=== PATIENT | female | born 1945 | race Caucasian/White ===

== ENCOUNTER 2023-10-07 14:44 | Observation (INO) | payer MEDICARE ==
--- NOTE | 2023-10-07 17:11 | ED ---
Abdominal Pain HPI - General Chief Complaint: Abdominal Pain Stated Complaint: Weakness Time Seen by Provider: 10/07/23 16:15 Source: patient Mode of arrival: EMS Limitations: physical limitation - History of Present Illness Initial Comments: 77-year-old female with past medical history significant for blindness presenting to the ED with a chief complaint nausea, vomiting, diarrhea. Patient states for the past 2 to 3 weeks has had some nausea, vomiting, diarrhea. Reports 2-3 episodes of diarrhea on a usual basis. Also notes some associated abdominal pain with this as well which is diffuse in nature. Since onset, patient reports symptoms have worsened in severity and also notes over the last week has developed some pain with urination. Denies any chest pain or shortness of breath. Denies fever or chills. Unsure of any blood in her urine or diarrhea secondary to the blindness. Denies URI symptoms. No other complaints at this time. - Related Data Allergies Allergy/AdvReac Type Severity Reaction Status Date / Time amlodipine Allergy Swelling Verified 10/07/23 15:03 morphine [From MS Contin] Allergy Hallucinati Verified 10/07/23 15:03 ons venlafaxine [From Effexor] Allergy Rash/Hives Verified 10/07/23 15:03 Review of Systems ROS Statement: Those systems with pertinent positive or pertinent negative responses have been documented in the HPI. ROS Other: All systems not noted in ROS Statement are negative. Past Medical History Past Medical History: Blood Disorder, Hyperlipidemia, Hypertension, Myocardial Infarction ([place]) Additional Past Medical History / Comment(s): blind, anemia Past Surgical History: Appendectomy, Back Surgery, Heart Catheterization, Hysterectomy, Joint Replacement, Orthopedic Surgery Additional Past Surgical History / Comment(s): cystoscopy 08/2023 Past Psychological History: No Psychological Hx Reported Smoking Status: Former smoker Past Alcohol Use History: None Reported Past Drug Use History: None Reported General Exam Limitations: physical limitation General appearance: alert, in no apparent distress Eye exam: Present: other (Right eye missing.) Neck exam: Present: normal inspection Respiratory exam: Present: normal lung sounds bilaterally Cardiovascular Exam: Present: regular rate GI/Abdominal exam: Present: soft (Diffuse abdominal tenderness to palpation wo rse in the lower abdomen. No rebound guarding or rigidity. Bowel sounds present.) Back exam: Present: other (No midline spinal tenderness to palpation.) Neurological exam: Present: alert, oriented X3 Skin exam: Present: warm, dry Course Vital Signs 10/07/23 10/07/23 14:50 18:30 Temperature 98.7 F 98.4 F Pulse Rate 62 82 Respiratory 20 16 Rate Blood Pressure 149/97 136/100 O2 Sat by Pulse 98 98 Oximetry Medical Decision Making - Medical Decision Making Was pt. sent in by a medical professional or institution (, PA, CLOTHES MARKER, urgent care, hospital, or care home...) When possible be specific @ -No Did you speak to anyone other than the patient for history (EMS, parent, family, police, friend...)? What history was obtained from this source @ -No Did you review nursing and triage notes (agree or disagree)? Why? @ -I reviewed and agree with nursing and triage notes Were old charts reviewed (outside hosp., previous admission, EMS record, old EKG, old radiological studies, urgent care reports/EKG's, care home records)? Report findings @ -No old charts were reviewed Differential Diagnosis (chest pain, altered mental status, abdominal pain women, abdominal pain men, vaginal bleeding, weakness, fever, dyspnea, syncope, headache, dizziness, GI bleed, back pain, seizure, CVA, palpatations, mental health, musculoskeletal)? @ -Differential Abdominal Pain Women: Appendicitis, Cholecystitis, diverticulosis, ischemic bowel, pancreatitis, hepatitis, UTI, gastroenteritis, AAA, incarcerated hernia, bowel obstruction, constipation, inflammatory bowel, hepatitis, peptic ulcer disease, splenic infarction, perforated viscus, vulvitis, ovarian torsion, PID, kidney stone, pl acenta abruption, this is not meant to be an all-inclusive list EKG interpreted by me (3pts min.). @ -None X-rays interpreted by me (1pt min.). @ -None done CT interpreted by me (1pt min.). @ -CT abdomen pelvis did let me which showed nonspecific findings potentially representing a mild enterocolitis. Also some evidence of distention of the urinary bladder and/or/cystitis. U/S interpreted by me (1pt. min.). @ -None done What testing was considered but not performed or refused? (CT, X-rays, U/S, labs)? Why? @ -None What meds were considered but not given or refused? Why? @ -None Did you discuss the management of the patient with other professionals (professionals i.e. , PA, CLOTHES MARKER, lab, RT, psych nurse, social work nurse, peoplesoft, teacher, us customs and border officer, casework manager)? Give summary @ -Case discussed with Dr. Gomez, who accepts admission Was smoking cessation discussed for >3mins.? @ -No Was critical care preformed (if so, how long)? @ -No Were there social determinants of health that impacted care today? How? (Homelessness, low income, unemployed, alcoholism, drug addiction, transportation, low edu. Level, literacy, decrease access to med. care, fci, rehab)? @ -No Was there de-escalation of care discussed even if they declined (Discuss DNR or withdrawal of care, Hospice)? DNR status @ -No What co-morbidities impacted this encounter? (DM, HTN, Smoking, COPD, CAD, Cancer, CVA, ARF, Chemo, Hep., AIDS, mental health diagnosis, sleep apnea, morbid obesity)? @ -None Was patient admitted / discharged? Hospital course, mention meds given and route, prescriptions, significant lab abnormalities, going to OR and other pertinent info. @ -Admission 77-year-old female who is blind presenting to the ED with complaints of nausea, vomiting, diarrhea, abdominal pain for the last 2 to 3 weeks. Has had 2-3 episodes of diarrhea on a daily basis. Reports symptoms have not been improving thus prompting to the ED for further evaluation. Laboratory studies reviewed. CBC largely unremarkable. Chemistry panel is significant for an elevated BUN and creatinine at 59 and 1.60 respectively. Otherwise largely unremarkable. Serology panel unremarkable. CT abdomen pelvis does show nonspecific findings p otentially representing a mild enterocolitis. There is also some evidence of cystitis however UA is currently pending and patient states that she may be able to pee within the next 2 to 3 hours. Laboratory evidence of acute kidney injury therefore patient will be admitted to observation for gentle IV hydration. Antibiotics pending urinalysis. Undiagnosed new problem with uncertain prognosis? @ -No Drug Therapy requiring intensive monitoring for toxicity (Heparin, Nitro, Insulin, Cardizem)? @ -No Were any procedures done? @ -No Diagnosis/symptom? @ -Acute kidney injury Acute, or Chronic, or Acute on Chronic? @ -Acute Uncomplicated (without systemic symptoms) or Complicated (systemic symptoms)? @ -Uncomplicated Side effects of treatment? @ -No Exacerbation, Progression, or Severe Exacerbation? @ -No Poses a threat to life or bodily function? How? (Chest pain, [place], [place], pneumonia, PE, COPD, DKA, ARF, appy, cholecystitis, CVA, Diverticulitis, Homicidal, Suicidal, threat to staff... and all critical care pts) @ -No - Lab Data Result diagrams: 10/07/23 17:14 10/07/23 17:14 Lab Results 10/07/23 10/07/23 10/07/23 Range/Units 17:14 17:14 17:14 WBC 8.9 (3.8-10.6) k/uL RBC 4.09 (3.80-5.40) m/uL Hgb 11.8 (11.4-16.0) gm/dL Hct 37.3 (34.0-46.0) % MCV 91.2 (80.0-100.0) fL MCH 28.9 (25.0-35.0) pg MCHC 31.7 (31.0-37.0) g/dL RDW 14.4 (11.5-15.5) % Plt Count 338 (150-450) k/uL MPV 8.0 Neutrophils % 72 % Lymphocytes % 15 % Monocytes % 8 % Eosinophils % 3 % Basophils % 0 % Neutrophils # 6.4 (1.3-7.7) k/uL Lymphocytes # 1.3 (1.0-4.8) k/uL Monocytes # 0.8 (0-1.0) k/uL Eosinophils # 0.3 (0-0.7) k/uL Basophils # 0.0 (0-0.2) k/uL Sodium 140 (137-145) mmol/L Potassium 4.3 (3.5-5.1) mmol/L Chloride 110 H (98-107) mmol/L Carbon Dioxide 15 L (22-30) mmol/L Anion Gap 15 mmol/L BUN 59 H (7-17) mg/dL Creatinine 1.60 H (0.52-1.04) mg/dL Est GFR (CKD-EPI)AfAm 35 (>60 ml/min/1.73 sqM) Est GFR (CKD-EPI)NonAf 31 (>60 ml/min/1.73 sqM) Glucose 111 H (74-99) mg/dL Plasma Lactic Acid Acosta 1.1 (0.7-2.0) mmol/L Calcium 10.9 H (8.4-10.2) mg/dL Total Bilirubin 0.5 (0.2-1.3) mg/dL AST 39 H (14-36) U/L ALT 17 (4-34) U/L Alkaline Phosphatase 70 (38-126) U/L Total Protein 7.2 (6.3-8.2) g/dL Albumin 4.4 (3.5-5.0) g/dL Amylase 76 (30-110) U/L Lipase 219 (23-300) U/L Influenza Type A (PCR) (Not Detectd) Influenza Type B (PCR) (Not Detectd) RSV (PCR) (Not Detectd) SARS-CoV-2 (PCR) (Not Detectd) 10/07/23 Range/Units 17:14 WBC (3.8-10.6) k/uL RBC (3.80-5.40) m/uL Hgb (11.4-16.0) gm/dL Hct (34.0-46.0) % MCV (80.0-100.0) fL MCH (25.0-35.0) pg MCHC (31.0-37.0) g/dL RDW (11.5-15.5) % Plt Count (150-450) k/uL MPV Neutrophils % % Lymphocytes % % Monocytes % % Eosinophils % % Basophils % % Neutrophils # (1.3-7.7) k/uL Lymphocytes # (1.0-4.8) k/uL Monocytes # (0-1.0) k/uL Eosinophils # (0-0.7) k/uL Basophils # (0-0.2) k/uL Sodium (137-145) mmol/L Potassium (3.5-5.1) mmol/L Chloride (98-107) mmol/L Carbon Dioxide (22-30) mmol/L Anion Gap mmol/L BUN (7-17) mg/dL Creatinine (0.52-1.04) mg/dL Est GFR (CKD-EPI)AfAm (>60 ml/min/1.73 sqM) Est GFR (CKD-EPI)NonAf (>60 ml/min/1.73 sqM) Glucose (74-99) mg/dL Plasma Lactic Acid Acosta (0.7-2.0) mmol/L Calcium (8.4-10.2) mg/dL Total Bilirubin (0.2-1.3) mg/dL AST (14-36) U/L ALT (4-34) U/L Alkaline Phosphatase (38-126) U/L Total Protein (6.3-8.2) g/dL Albumin (3.5-5.0) g/dL Amylase (30-110) U/L Lipase (23-300) U/L Influenza Type A (PCR) Not Detected (Not Detectd) Influenza Type B (PCR) Not Detected (Not Detectd) RSV (PCR) Not Detected (Not Detectd) SARS-CoV-2 (PCR) Not Detected (Not Detectd) Disposition Clinical Impression: [place] (acute kidney injury) Disposition: ADMITTED IP TO THIS [facility] Condition: Good Referrals: None,Stated [REFERRING] - 1-2 days Time of Disposition: 21:30
[2023-10-07] MEDS: HYDROmorphone 0.5 MG/0.5 ML SYRINGE IVP STA (17:23)
[2023-10-07] MEDS: SODIUM CHLORIDE 0.9% 1,000 ML IV STA ×2 (17:27→20:22)
[2023-10-07 17:42] LABS: Basophils % (A) 0 %; Eosinophils # (A) 0.3 k/uL (0-0.7); Eosinophils % (A) 3 %; HCT 37.3 % (34.0-46.0); HGB 11.8 gm/dL (11.4-16.0); Lymphocytes # (A) 1.3 k/uL (1.0-4.8); Lymphocytes % (A) 15 %; MCH 28.9 pg (25.0-35.0); MCHC 31.7 g/dL (31.0-37.0); MCV 91.2 fL (80.0-100.0); Monocytes # (A) 0.8 k/uL (0-1.0); Monocytes % (A) 8 %; Neutrophils # (A) 6.4 k/uL (1.3-7.7); Neutrophils % (A) 72 %; Platelet Count 338 k/uL (150-450); RBC 4.09 m/uL (3.80-5.40); RDW 14.4 % (11.5-15.5); WBC 8.9 k/uL (3.8-10.6)
[2023-10-07 18:00] LABS: ALT 17 U/L (4-34); AST 39 U/L (14-36); African American GFR (CKD) 35 (>60 ml/min/1.73 sqM); Albumin 4.4 g/dL (3.5-5.0); Alkaline Phosphatase 70 U/L (38-126); Amylase 76 U/L (30-110); Anion Gap 15 mmol/L; Blood Urea Nitrogen 59 mg/dL (7-17); Calcium 10.9 mg/dL (8.4-10.2); Carbon Dioxide 15 mmol/L (22-30); Chloride 110 mmol/L (98-107); Glucose 111 mg/dL (74-99); Lipase 219 U/L (23-300); Non-African American GFR(CKD) 31 (>60 ml/min/1.73 sqM); Potassium 4.3 mmol/L (3.5-5.1); Sodium 140 mmol/L (137-145); Total Bilirubin 0.5 mg/dL (0.2-1.3); Total Protein 7.2 g/dL (6.3-8.2)
--- NOTE | 2023-10-07 19:05 | CT ---
EXAMINATION TYPE: CT abdomen pelvis wo con CT DLP: 254.6 mGycm, Automated exposure control for dose reduction was used. DATE OF EXAM: 10/07/2023 6:18 PM COMPARISON: None. CLINICAL INDICATION:Female, 77 years old with history of diffuse abdominal pain, n/v/d; diffuse abdom inal pain, n/v/d - poor kidney function TECHNIQUE: Axial CT of the abdomen and pelvis. Sagittal and coronal reformats were created on a [employer] workstation. Contrast used: mL of , (none if empty) Oral contrast used: without Oral Contrast (none if empty) FINDINGS: Exam is limited without contrast. This limitation by lack of intra-abdominal fat to provide intrinsic contrast. LOWER CHEST: Mild pleural thickening, SVC and scarring in the left lung base. Heart appears mildly en larged. The visualized tricuspid calcification and coronary artery calcifications. Small pericardial effusion. ABDOMEN LIVER/BILIARY: Right hepatic lobe appears mildly elongated up to 17.5 cm in length, with waist identi fied at its midportion along the inferior margin of the ribs. Gallbladder is seen somewhat unusually extending from the level of the terell hepatis inferiorly and towards the left, located just left of m idline inside the anterior abdominal wall. Biliary tree difficult to visualize but appears prominent. The CBD may be about 12 mm or so and not well seen distally. PANCREAS: Difficult to evaluate. No clearly acute abnormality. SPLEEN: Normal in size. ADRENAL GLANDS: No suggestion of mass. KIDNEYS AND URETERS: No evidence of renal calculi or contour deformity. No hydronephrosis. PELVIS BLADDER: Incompletely distended with mild diffuse thickened appearance to the wall. There may be smal l diverticula posterolaterally. REPRODUCTIVE: The uterus appears absent, correlate for hysterectomy. ABDOMEN & PELVIS STOMACH AND BOWEL: Stomach and small bowel are nondistended, no evidence of obstruction. The append ix is not seen with certainty but there is no inflammatory process seen in the pericecal region. Mod erate stool throughout the colon, hyperdense and some areas possibly representing residual contrast. PERITONEUM/RETROPERITONEUM: There is questionably some haziness of the mesenteric fat and some scat tered fluid in amongst bowel loops. No large drainable amount of ascites or focal fluid collection is identified. Gas seen appears to all be contained within bowel, without clear evidence of free intrap eritoneal air or pneumatosis intestinalis. VASCULATURE: Moderate to severe atherosclerotic calcifications are present throughout the abdominal a jacquie and its branches. No evidence of aortic aneurysm. Aorta is tortuous. LYMPH NODES: No enlarged lymph nodes visualized. SOFT TISSUE/ABDOMINAL WALL: No discrete acute finding MUSCULOSKELETAL: Generalized decreased bone mineralization. Moderate degenerative changes of the spin e with moderate to marked levoscoliosis of the upper lumbar spine. There is 5 mm degenerative anterol isthesis L3 on L4. Mild superior endplate depression of L5, inferior endplate depression of L2, super ior and inferior endplate depressions of L1, and mild superior endplate depression of T12, are favore d to be chronic without acute fracture lucency seen. Mild to moderate canal and foraminal stenosis at multiple levels. There is a small sclerotic focus in the left iliac bone near the upper end of the S I joints, nonspecific could be a bone island. A destructive osseous lesion is not identified. IMPRESSION: 1. Limited unenhanced study shows no clearly defined acute inflammatory or obstructive process in th e abdomen or pelvis. 2. Nonspecific findings could potentially represent a mild enterocolitis. No evidence of bowel obstr uction. 3. Biliary tree difficult to visualize but appears likely prominent. Please correlate with LFTs 4. Urinary bladder incompletely distended with mild diffusely thickened appearance, could be due to incomplete distention and/or cystitis. 5. Mild cardiomegaly with small pericardial effusion.
[2023-10-07] MEDS ORDERED: HYDROmorphone 1 MG/ML 1 ML SYRINGE IVP PRN (22:37)
[2023-10-07] MEDS ORDERED: NALOXONE 0.4 MG/ML 1 ML VIAL IV PRN (22:37)
[2023-10-07 23:15] LABS: Amorphous Sediment,Urine Rare /hpf; Appearance,Urine Clear (Clear); Bilirubin,Urine Negative (Negative); Blood,Urine Negative (Negative); Color,Urine Colorless; Glucose,Urine (UA) Negative (Negative); Hyaline Casts,Urine 4 /lpf (0-2); Ketones,Urine Trace (Negative); Leukocyte Esterase,Urine Small (Negative); Mucus,Urine Rare /hpf; Nitrite,Urine Negative (Negative); PH, Urine 5.5 (5.0-8.0); Protein,Urine Trace (Negative); RBC,Urine 1 /hpf (0-5); Specific Gravity,Urine 1.022 (1.001-1.035); Squamous Epithelial Cell,Urine <1 /hpf (0-4); Urobilinogen,Urine <2.0 mg/dL (<2.0); WBC,Urine 11 /hpf (0-5)
--- NOTE | 2023-10-08 01:09 | P.HPIM ---
History of Present Illness H&P Date: 10/08/23 Patient is a 77-year-old female resident of [facility] with a PMH of blindness, hypertension, hyperlipidemia, and coronary artery disease who presents to the emergency room with complaints of nausea, vomiting, and diarrhea. Patient notes that the above symptoms have been persistent for the past 2 weeks with intermittent diffuse abdominal discomfort, rated at a 7 out of 10, occurring multiple times a day lasting for few minutes at a time and then resolving spontaneously. Reports 2-3 watery bowel movements a day as well as 1- 2 episodes of vomiting, with no precipitating factors noted. Patient does not know if she has black or bloody stools due to her blindness. She denied experiencing fever, chills, chest pain, shortness of breath. CT abdomen and pelvis in the emergency room revealed nonspecific findings potentially representing a mild enterocolitis with mild cardiomegaly and small pericardial effusion. Laboratory evaluation was remarkable for BUN 59, creatinine 1.6 (no baseline available for comparison), with hemoglobin 11.8, with an unremarkable UA. ED documentation reviewed and case discussed with ED provider. Review of systems: Pertinent positives and negatives as discussed in HPI, a complete review of systems was performed and all other systems are negative. Physical examination: Vital signs reviewed General: non toxic, no distress, appears at stated age, thin female Derm: no unusual rashes/lesions, warm Head: atraumatic, normocephalic, symmetric Eyes: Right prosthetic eye, left pupil unreactive to light ENT: Nose and ears atraumatic Neck: No cervical lymphadenopathy, trachea midline, supple Mouth: no lip lesion, mucus membranes moist Cardiovascular: S1S2 reg, no murmur, positive dorsalis pedis pulse bilateral, no edema Lungs: CTA bilateral, no rhonchi, no rales, no accessory muscle use Abdominal: soft, nontender to palpation, no guarding Ext: muscle strength 5 out of 5 in all 4 extremities grossly, no gross muscle atrophy, no contractures, Neuro: CN II-XI grossly intact, no gross focal neuro deficits Psych: Alert, oriented, appropriate affect Assessment: Kidney injury, acute versus chronic Severe protein calorie malnutrition, likely due to persistent diarrhea and vomiting Chronic conditions: Hypertension, hyperlipidemia, CAD, blindness Imaging: CT abdomen and pelvis in the emergency room revealed nonspecific findings potentially representing a mild enterocolitis with mild cardiomegaly and small pericardial effusion. Data Review: Laboratory evaluation was remarkable for BUN 59, creatinine 1.6 (no baseline available for comparison), with hemoglobin 11.8, with an unremarkable UA. Plan: Continue with IV fluids normal saline 75 cc/h Start patient on Flagl 500 mg po q8h Dietitian consult Antiemetics Check calprotectin levels Monitor BMP Continue with home medications once reconciled DVT prophylaxis: Lovenox Subq The patient is admitted with an anticipated less than 2 midnight stay for evaluation of Kidney injury CODE STATUS: Full Code Discussed with: Patient Anticipated discharge place: Home Past Medical History Past Medical History: Blood Disorder, Hyperlipidemia, Hypertension, Myocardial Infarction ([place]) Additional Past Medical History / Comment(s): blind, anemia Past Surgical History: Appendectomy, Back Surgery, Heart Catheterization, Hysterectomy, Joint Replacement, Orthopedic Surgery Additional Past Surgical History / Comment(s): cystoscopy 08/2023 Past Psychological History: No Psychological Hx Reported Smoking Status: Former smoker Past Alcohol Use History: None Reported Past Drug Use History: None Reported Medications and Allergies Allergies Allergy/AdvReac Type Severity Reaction Status Date / Time amlodipine Allergy Swelling Verified 10/07/23 15:03 morphine [From MS Contin] Allergy Hallucinati Verified 10/07/23 15:03 ons venlafaxine [From Effexor] Allergy Rash/Hives Verified 10/07/23 15:03 Physical Exam Vitals: Vital Signs Temp Pulse Resp BP Pulse Ox 10/07/23 22:00 74 18 128/78 98 10/07/23 18:30 98.4 F 82 16 136/100 98 10/07/23 14:50 98.7 F 62 20 149/97 98 Intake and Output 10/07/23 10/07/23 10/08/23 14:59 22:59 06:59 Other: Weight 40.37 kg Results CBC & Chem 7: 10/07/23 17:14 10/07/23 17:14 Labs: Abnormal Lab Results - Last 24 Hours (Table) 10/07/23 10/07/23 Range/Units 17:14 22:55 Chloride 110 H (98-107) mmol/L Carbon Dioxide 15 L (22-30) mmol/L BUN 59 H (7-17) mg/dL Creatinine 1.60 H (0.52-1.04) mg/dL Glucose 111 H (74-99) mg/dL Calcium 10.9 H (8.4-10.2) mg/dL AST 39 H (14-36) U/L Urine Protein Trace H (Negative) Urine Ketones Trace H (Negative) Ur Leukocyte Esterase Small H (Negative) Urine WBC 11 H (0-5) /hpf Amorphous Sediment Rare H (None) /hpf Hyaline Casts 4 H (0-2) /lpf Urine Mucus Rare H (None) /hpf
[2023-10-08] MEDS: metroNIDAZOLE 500 MG TAB PO SCH (01:59)
[2023-10-08] MEDS: SODIUM CHLORIDE 0.9% 1,000 ML IV SCH (01:59)
[2023-10-08] MEDS: HYDROmorphone 0.5 MG/0.5 ML SYRINGE IVP PRN (02:32)
[2023-10-08 08:40] LABS: African American GFR (CKD) 63 (>60 ml/min/1.73 sqM); Anion Gap 10 mmol/L; Blood Urea Nitrogen 43 mg/dL (7-17); Calcium 9.9 mg/dL (8.4-10.2); Carbon Dioxide 18 mmol/L (22-30); Chloride 113 mmol/L (98-107); Glucose 93 mg/dL (74-99); Non-African American GFR(CKD) 55 (>60 ml/min/1.73 sqM); Sodium 141 mmol/L (137-145)
[2023-10-08 08:42] LABS: ALT 19 U/L (4-34); AST 40 U/L (14-36); African American GFR (CKD) 62 (>60 ml/min/1.73 sqM); Albumin 3.8 g/dL (3.5-5.0); Alkaline Phosphatase 59 U/L (38-126); Anion Gap 10 mmol/L; Blood Urea Nitrogen 42 mg/dL (7-17); Calcium 9.9 mg/dL (8.4-10.2); Carbon Dioxide 17 mmol/L (22-30); Chloride 114 mmol/L (98-107); Glucose 92 mg/dL (74-99); Non-African American GFR(CKD) 54 (>60 ml/min/1.73 sqM); Potassium 4.1 mmol/L (3.5-5.1); Sodium 141 mmol/L (137-145); Total Bilirubin 0.5 mg/dL (0.2-1.3); Total Protein 6.5 g/dL (6.3-8.2)
[2023-10-08 08:51] LABS: Potassium 4.3 mmol/L (3.5-5.1)
[2023-10-08] MEDS: ENOXAPARIN 30 MG/0.3 ML SYRINGE SQ SCH (09:04)
[2023-10-08] MEDS: ONDANSETRON 4 MG/2 ML VIAL IVP PRN (10:58)
[2023-10-08] MEDS: FAMOTIDINE 20 MG TAB PO SCH (14:09)
[2023-10-08] MEDS: LABETALOL 100 MG TAB PO SCH (14:10)
[2023-10-08] MEDS: LACTOBACILLUS ACIDOPHILUS/PECT 1 EACH CAPSULE PO SCH (14:12)
--- NOTE | 2023-10-08 14:46 | P.PN ---
Subjective Progress Note Date: 10/08/23 Hospital course: Patient is a very pleasant 77-year-old female with a past medical history of CAD, hypertension, hyperlipidemia, and blindness. She resides at [facility] and was sent to the emergency department on 10/07/2023 secondary to concerns of nausea, vomiting, and diarrhea with diffuse intermittent abdominal discomfort ongoing for approximately 2 to 3 weeks. She underwent evaluation in the emergency department. Vital signs upon arrival show blood pressure 149/97, heart rate 62, respiratory rate 20, temp 98.7 F, and SpO2 of 98% on room air. Labs were completed and reviewed. CBC was unremarkable. BMP revealing high anion gap metabolic acidosis with chloride of 110, bicarb 15, and anion gap of 15 along with acute kidney injury with BUN of 59, creatinine 1.60, GFR of 31. Blood glucose was 111. Lactic acid normal findings at 1.1. Calcium was elevat ed at 10.9. Liver profile revealed elevated AST of 39 otherwise normal findings. Urinalysis was not concerning for infection showing only 11 WBCs otherwise normal findings. Influenza A, influenza B, RSV, and COVID PCR were negative. CT abdomen and pelvis without contrast was completed was negative for acute inflammatory or obstructive process within the abdomen or pelvis with only nonspecific findings possibly representing a mild enterocolitis along with mild cardiomegaly and small pericardial effusion. Patient was started on Flagyl and admitted under our services with consultation to dietitian for nutritional support. C. difficile, stool culture, and calprotectin stool cultures pending. Physical exam: Vital signs reviewed and stable. General: Nontoxic, no distress and appears stated age. Derm: Skin warm and dry, normal coloration for ethnicity. Head: Atraumatic, normocephalic and symmetric. Eyes: EOMs intact, no lid lag, and anicteric sclera Mouth: no lip lesions, mucus membranes moist Cardiovascular: regular rate and rhythm with normal S1S2, no murmur, positive posterior tibial pulses bilaterally, and cap refill < 2 seconds. Lungs: Respirations even, regular, and unlabored on room air. Lungs CTA bilaterally, no rhonchi, no rales, no wheezing, and no accessory muscle usage. Abdominal: soft, nontender to palpation, no guarding, no appreciable organomegaly Ext: ROM intact. No gross muscle atrophy, no edema, no contractures Neuro: Speech clear, face symmetrical and CN II-XII grossly intact with no noted focal neuro deficits Psych: Alert and oriented to person, place, time, and situation. Appropriate and pleasant affect. Assessment and Plan of Care: Enterocolitis Abdominal pain with nausea, vomiting, and diarrhea. Secondary to above. Dehydration, secondary to above Acute kidney injury secondary to dehydration CT abdomen and pelvis showing nonspecific findings concerning for mild enterocolitis Hold losartan and continue with gentle IV fluid hydration with 0.9% normal saline at 75 cc/h. Order placed for stool culture, C. difficile, and calprotectin pending. Patient to continue Flagyl 500 mg 3 times daily. Symptomatic care and pain management. History of CAD Hypertension Hyperlipidemia Continue daily medication regimen with atorvastatin 20 mg nightly, and labetalol 100 mg twice daily. Losartan held secondary to TAWANA. Data and imaging reviewed: Reviewed CT report concerning for nonspecific findings of mild enterocolitis. Vital signs reviewed. Blood pressure elevated at 162/105, heart rate 80, respiratory rate 16, temp 98.2 F, and SpO2 of 93% on room air. Home medications were reviewed and reordered at this time. Repeat morning labs were ordered and upon follow-up revealing resolution of TAWANA and improvement of metabolic acidosis with chloride 113, bicarb 18, and anion gap of 10 with renal function showing elevated BUN of 43 and a creatinine of 0.99 with GFR of 55. Liver profile showing elevated AST of 40.. CODE STATUS: Full code DVT prophylaxis: Lovenox Anticipated discharge date: Possibly 24 to [address]: Home, patient to return home to [facility] home Patient was seen independently by Nurse Pracitioner. This document was prepared using [employer] dictation software. Please allow for errors in hand plate stacker, while rare they do occur. I reviewed the documentation as provided by the DEE above, who is the original author of this note. I agree with the documented assessment and plan, with the following changes: none Objective - Vital Signs Vital signs: Vital Signs Temp 98.2 F 10/08/23 07:00 Pulse 80 10/08/23 07:00 Resp 16 10/08/23 07:00 BP 162/105 10/08/23 07:00 Pulse Ox 93 L 10/08/23 07:00 FiO2 Intake & Output 10/07/23 10/08/23 10/08/23 18:59 06:59 18:59 Weight 40.37 kg - Labs CBC & Chem 7: 10/07/23 17:14 10/08/23 07:13 Labs: Abnormal Lab Results - Last 24 Hours (Table) 10/07/23 10/07/23 Range/Units 17:14 22:55 Chloride 110 H (98-107) mmol/L Carbon Dioxide 15 L (22-30) mmol/L BUN 59 H (7-17) mg/dL Creatinine 1.60 H (0.52-1.04) mg/dL Glucose 111 H (74-99) mg/dL Calcium 10.9 H (8.4-10.2) mg/dL AST 39 H (14-36) U/L Urine Protein Trace H (Negative) Urine Ketones Trace H (Negative) Ur Leukocyte Esterase Small H (Negative) Urine WBC 11 H (0-5) /hpf Amorphous Sediment Rare H (None) /hpf Hyaline Casts 4 H (0-2) /lpf Urine Mucus Rare H (None) /hpf
[2023-10-08] MEDS: tiZANidine 4 MG TAB PO SCH (16:45)
[2023-10-08 17:58] VITALS: BMI 15.3
[2023-10-08] MEDS: ATORVASTATIN 20 MG TAB PO SCH (20:14)
[2023-10-08] MEDS ORDERED: LOSARTAN 50 MG TAB PO SCH (21:00)
[2023-10-09] MEDS: FERROUS SULFATE 325 MG TAB PO SCH (08:37)
[2023-10-09 09:23] VITALS: TEMP 98.5
[2023-10-09 11:48] LABS: ALT 17 U/L (8-44); AST 35 U/L (13-35); Albumin 4.1 g/dL (3.8-4.9); Albumin/Globulin Ratio 1.78 Ratio (1.60-3.17); Alkaline Phosphatase 66 U/L (41-126); BUN/Creat Ratio 28.11 Ratio (12.00-20.00); Blood Urea Nitrogen 25.3 mg/dL (9.0-27.0); Carbon Dioxide 19.1 mmol/L (21.6-31.8); Chloride 112 mmol/L (96-109); Globulin 2.3 g/dL (1.6-3.3); Glucose 95 mg/dL (70-110); Magnesium 1.7 mg/dL (1.5-2.4); Potassium 4.1 mmol/L (3.5-5.5); Sodium 143 mmol/L (135-145); Total Bilirubin 0.3 mg/dL (0.3-1.2); Total Protein 6.4 g/dL (6.2-8.2)
[2023-10-09 12:18] LABS: HCT 30.7 % (37.2-46.3); HGB 10.1 g/dL (12.0-15.0); MCH 29.2 pg (27.0-32.0); MCHC 32.9 g/dL (32.0-37.0); MCV 88.7 FL (80.0-97.0); Mean Platelet Volume 10.3 FL (9.5-12.2); NRBC Per 100 WBC 0 X 10*3/uL (0.00-0.01); Platelet Count 302 X 10*3/uL (140-440); RBC 3.46 X 10*6/uL (4.10-5.20); RDW 15.2 % (11.5-14.5); WBC 7.71 X 10*3/uL (4.50-10.00)
--- NOTE | 2023-10-09 14:25 | P.DS ---
Providers Date of admission: 10/07/23 23:41 Expected date of discharge: 10/09/23 Attending physician: Veronica Gomez MD Primary care physician: Physician Nonstaff Hospital Course: Discharge Diagnosis: Mild colitis, vomiting and diarrhea have resolved. Unable to obtain stool culture or C. difficile culture or calprotectin culture ordered upon admission. Patient tolerating oral intake well. Abdominal pain with nausea, vomiting, and diarrhea. Secondary to above. Dehydration, secondary to above. Acute kidney injury secondary to dehydration. Resolved. History of CAD. Hypertension. Hyperlipidemia Hospital Course: Patient is a very pleasant 77-year-old female with a past medical history of CAD, hypertension, hyperlipidemia, and blindness. She resides at [facility] and was sent to the emergency department on 10/07/2023 secondary to concerns of nausea, vomiting, and diarrhea with diffuse intermittent abdominal discomfort ongoing for approximately 2 to 3 weeks. She underwent evaluation in the emergency department. Vital signs upon arrival show blood pressure 149/97, heart rate 62, respiratory rate 20, temp 98.7 F, and SpO2 of 98% on room air. Labs were completed and reviewed. CBC was unremarkable. BMP revealing high anion gap metabolic acidosis with chloride of 110, bicarb 15, and anion gap of 15 along with acute kidney injury with BUN of 59, creatinine 1.60, GFR of 31. Blood glucose was 111. Lactic acid normal findings at 1.1. Calcium was elevated at 10.9. Liver profile revealed elevated AST of 39 otherwise normal findings. Urinalysis was not concerning for infection showing only 11 WBCs otherwise normal findings. Influenza A, influenza B, RSV, and COVID PCR were negative. CT abdomen and pelvis without contrast was completed was negative for acute inflammatory or obstructive process within the abdomen or pelvis with only nonspecific findings possibly representing a mild enterocolitis along with mild cardiomegaly and small pericardial effusion. Patient was started on Flagyl and admitted under our services with consultation to dietitian for nutritional support. C. difficile, stool culture, and calprotectin stool cultures were ordered upon admission however patient's diarrhea has subsided and cultures were not obtained. Patient was started on Flagyl 500 mg 3 times daily. She is tolerating oral intake well and a low-fat diet. Medically, patient is stable for discharge at this time. Patient to follow-up outpatient with PCP in 1 to 2 days. Physical exam: Vital signs reviewed and stable. General: Nontoxic, no distress and appears stated age. Derm: Skin warm and dry, normal coloration for ethnicity. Head: Atraumatic, normocephalic and symmetric. Eyes: EOMs intact, no lid lag, and anicteric sclera Mouth: no lip lesions, mucus membranes moist Cardiovascular: regular rate and rhythm with normal S1S2, no murmur, positive posterior tibial pulses bilaterally, and cap refill < 2 seconds. Lungs: Respirations even, regular, and unlabored on room air. Lungs CTA bilaterally, no rhonchi, no rales, no wheezing, and no accessory muscle usage. Abdominal: soft, nontender to palpation, no guarding, no appreciable organomegaly Ext: ROM intact. No gross muscle atrophy, no edema, no contractures Neuro: Speech clear, face symmetrical and CN II-XII grossly intact with no noted focal neuro deficits Psych: Alert and oriented to person, place, time, and situation. Appropriate and pleasant affect. A total of 33 minutes of time were spent preparing this complex discharge summary. Pt was discharged on 10/09/23 at 2:16 PM. Patient was seen independently by Nurse Practitioner. This document was prepared using [employer] dictation software. Please allow for errors in tape sewer while rare they do occur. Ike Chao NP rendered care for this patient independently, reviewed the findings and plan as documented in the note above. I did not physically speak with or examine the patient on this date. Patient Condition at Discharge: Stable Plan - Discharge Summary New Discharge Prescriptions: New metroNIDAZOLE [Flagyl] 500 mg PO TID 6 Days #18 tab Continue Ferrous Gluconate 324 mg PO Q2D Famotidine [Pepcid] 20 mg PO BID Diclofenac Sodium Gel [Voltaren 1% Gel] 1 applic TOPICAL QID PRN PRN Reason: Pain Lactobacillus Acidophilus [Acidophilus] 1 tab PO DAILY Cyanocobalamin (Vitamin B-12) [Vitamin B-12] 1,000 mcg PO DAILY tiZANidine [Zanaflex] 2 mg PO TID Triple [place] 1 tab PO BID Calcium Carbonate [Calcium] 1,200 mg PO DAILY Spironolactone [Aldactone] 12.5 mg PO DAILY Solifenacin Succinate [Vesicare] 10 mg PO DAILY Losartan [Cozaar] 50 mg PO HS Ubidecarenone [Coenzyme Q10] 200 mg PO DAILY Alendronate Sodium [Fosamax] 70 mg PO FR hydrOXYzine HCL [Atarax] 25 mg PO DAILY Labetalol [Trandate] 100 mg PO BID HYDROcodone/APAP 5-325MG [[place] 5-325] 1 tab PO BID PRN PRN Reason: Pain Cranberry 425mg 425 mg PO BID Acetaminophen Tab [Tylenol] 1,000 mg PO TID Simvastatin [Zocor] 40 mg PO HS Garlic 1,000 mg PO DAILY diphenhydrAMINE HCL [Benadryl] 25 mg PO HS PRN PRN Reason: allergies/sleep Changed Ondansetron Odt [Zofran ODT] 8 mg PO TID PRN #30 tab PRN Reason: Nausea Discharge Medication List Acetaminophen Tab [Tylenol] 1,000 mg PO TID 10/08/23 [History] Alendronate Sodium [Fosamax] 70 mg PO FR 10/08/23 [History] Calcium Carbonate [Calcium] 1,200 mg PO DAILY 10/08/23 [History] Cranberry 425mg 425 mg PO BID 10/08/23 [History] Cyanocobalamin (Vitamin B-12) [Vitamin B-12] 1,000 mcg PO DAILY 10/08/23 [History] Diclofenac Sodium Gel [Voltaren 1% Gel] 1 applic TOPICAL QID PRN 10/08/23 [History] Famotidine [Pepcid] 20 mg PO BID 10/08/23 [History] Ferrous Gluconate 324 mg PO Q2D 10/08/23 [History] Garlic 1,000 mg PO DAILY 10/08/23 [History] HYDROcodone/APAP 5-325MG [[place] 5-325] 1 tab PO BID PRN 10/08/23 [History] Labetalol [Trandate] 100 mg PO BID 10/08/23 [History] Lactobacillus Acidophilus [Acidophilus] 1 tab PO DAILY 10/08/23 [History] Losartan [Cozaar] 50 mg PO HS 10/08/23 [History] Simvastatin [Zocor] 40 mg PO HS 10/08/23 [History] Solifenacin Succinate [Vesicare] 10 mg PO DAILY 10/08/23 [History] Spironolactone [Aldactone] 12.5 mg PO DAILY 10/08/23 [History] Triple [place] 1 tab PO BID 10/08/23 [History] Ubidecarenone [Coenzyme Q10] 200 mg PO DAILY 10/08/23 [History] diphenhydrAMINE HCL [Benadryl] 25 mg PO HS PRN 10/08/23 [History] hydrOXYzine HCL [Atarax] 25 mg PO DAILY 10/08/23 [History] tiZANidine [Zanaflex] 2 mg PO TID 10/08/23 [History] Ondansetron Odt [Zofran ODT] 8 mg PO TID PRN #30 tab 10/09/23 [Rx] metroNIDAZOLE [Flagyl] 500 mg PO TID 6 Days #18 tab 10/09/23 [Rx] Follow up Appointment(s)/Referral(s): Luis Angel Laird MD [REFERRING] - 1-2 Days Patient Instructions/Handouts: Low Fiber Diet (DC), Colitis (ED) Activity/Diet/Wound Care/Special Instructions: Activity: As tolerated. Take breaks as needed. Diet: Low fiber diet Special Instructions: Take all of your medications as directed and remember to keep all of your doc tor's appointments and follow-up as needed. Thank you for allowing us to participate in your care, it was truly a pleasure having you for our patient!!! Discharge Disposition: HOME SELF-CARE
[2023-10-09 16:04] VITALS: BP 159/95; PULSE 64; RESP 16
[2023-10-09] MEDS: MAGNESIUM OXIDE 400 MG TAB PO STA (16:33)
== END 2023-10-09 18:58 | disposition home or self-care (01) ==
LOC: EC 14:44 → 6NMEDSUR 23:41
PROVIDERS: ADMIT Internal Medicine; ATTEND Internal Medicine
DX: K52.9 Noninfective gastroenteritis and colitis, unspecified (principal); E86.0 Dehydration; N17.9 Acute kidney failure, unspecified; E78.5 Hyperlipidemia, unspecified; I10 Essential (primary) hypertension; I25.10 Atherosclerotic heart disease of native coronary artery without angina pectoris; H54.7 Unspecified visual loss; I25.2 Old myocardial infarction; E43 Unspecified severe protein-calorie malnutrition; Z68.1 Body mass index [BMI] 19.9 or less, adult; Z87.891 Personal history of nicotine dependence; Z88.5 Allergy status to narcotic agent; Z11.52 Encounter for screening for COVID-19
CPT/HCPCS: 96376 ×3; 96372 ×2; 96375; 96361; 96374; 99285; 36415; 80053 ×3; 80048; 82150; 83605; 83690; 83735; 85025; 85027; 81001; 87636; 74176; G0378 ×3; J2405 ×2; J1650 ×2; J1170 ×3

== ENCOUNTER → 2023-11-12 | Outpatient (CLI) | payer MEDICARE ==
[2023-11-12 13:51] VITALS: BP 149/93; PULSE 65; RESP 16; TEMP 98
--- NOTE | 2023-11-12 14:12 | P.PAINPG ---
PQRS Measure Charge Sheet Comment: HISTORY OF PRESENT ILLNESS: A 77 yr old visually blind, wheelchair bound, LTC resident female at side as a referral from Shyam RUTLEDGE presents today w severe and chronic neck pain > 1 yr secondary to DDD, spondylosis and facet arthropathy without myelopathy for evaluation. Pt states pain level is provoked at 6 /10 in intensity, constant, localized in the mid to lower cervical spine, predominantly axial, sharp in character w occasional shooting pain towards the R shoulder and RUE. Pain is provoked by over activity. Pain is alleviated by in-house PT x 8 wks which she is currently in, medications (Tramadol, Baclofen, Lyrica), CBD oil topical, repositioning and rest . Cervical disability score at 32. PMH: OA, Anemia, Hyperlipidemia, HTN, CAD, NC, GERD, Visual Loss PSH: Appendectomy, Lumbar Surgery, Heart Catheterization, Hysterectomy, Joint Replacement, L Thumb Surgery, Cystoscopy (2023) SH: Former tobacco user, No ETOH use, No illicit drug use FH: Non contributory All: See list Meds: See list REVIEW OF ORGAN SYSTEMS: CONSTITUTIONAL: No fevers or chills. No recent weight loss. NEUROLOGICAL: + numbness and tingling along the distal extremities. No seizure disorders or headaches. MUSCULOSKELETAL: + pain PSYCHIATRIC: Denies current depression or suicidal thoughts. Physical Examinations : Constitutional : Cooperative , not in acute distress . Neurologic : Cranial nerve II to XII intact. No focal neurological deficits. Psychiatric : alert & oriented x 3. Matching mood & appropriate affect. Judgment & insight intact. Musculoskeletal : Cervical Spine Motor strength in the deltoid and biceps: Normal right side. Normal Left side Motor strength biceps and the wrist extensors: Normal right side . Normal left side Motor strength in the triceps muscle: Normal right side. Normal left side Deep tendon reflexes: Normal at the biceps. Normal at Brachioradialis. Normal at triceps Vertebral body tenderness to deep palpation over C6 Cervical facet loading test: positive bilaterally Spurling test: positive bilaterally Neck distraction test: positive bilaterally Lenny sign: positive bilaterally Lumbar spine Motor strength lower extremities ,thigh and legs 5/5 Right side , 5/5 Left side Deep tendon reflexes : Normal Knee Jerk. Normal Ankle Jerk Vertebral body tenderness over Anderson Test positive Lumbar facet Loading Test: positive Right / positive Left Range of motion of the lumbar spine Flexion 30 degrees, extension 10 degrees Straight Leg Raise test: Left/ Right positive at degrees Ravi test: positive right / positive left. Severe tenderness over the Sacroiliac joint on the Right / Left sides Gaenslen test: positive bilaterally Seated flexion test: positive bilaterally. Sacral spine : Severe tenderness over the Sacroiliac joint: right side / left side Range of motion: Flexion of the lumbar spine <60 degrees Range of motion: Extension of the lumbar spine <20 degrees Gaenslen's Test positive Ravi test: positive right side / left side Thigh Thrust Test Sacral Thrust Test Imaging: Cervical x ray reviewed Assessment/ Plan : Severe C4-C5 DDD Recommendation of MRI non contrast of the cervical spine M50.30. All questions answered. I have spent greater than 30 minutes on patient care today. Dr Kimball was available by phone for the evaluation of this patient. The time was used to review the medical records including relevant urine studies and Prescription history (MAPs), review of the available imaging, evaluation and examination of the patient, coordination of care with the medical staff and if applicable referring physicians, as well as creation of the medical record Home Medications: Ambulatory Orders Acetaminophen Tab [Tylenol] 1,000 mg PO TID 10/08/23 Alendronate Sodium [Fosamax] 70 mg PO FR 10/08/23 Calcium Carbonate [Calcium] 1,200 mg PO DAILY 10/08/23 Cranberry 425mg 425 mg PO BID 10/08/23 Cyanocobalamin (Vitamin B-12) [Vitamin B-12] 1,000 mcg PO DAILY 10/08/23 Diclofenac Sodium Gel [Voltaren 1% Gel] 1 applic TOPICAL QID PRN 10/08/23 Famotidine [Pepcid] 20 mg PO BID 10/08/23 Ferrous Gluconate 324 mg PO Q2D 10/08/23 Garlic 1,000 mg PO DAILY 10/08/23 HYDROcodone/APAP 5-325MG [[place] 5-325] 1 tab PO BID PRN 10/08/23 Labetalol [Trandate] 100 mg PO BID 10/08/23 Lactobacillus Acidophilus [Acidophilus] 1 tab PO DAILY 10/08/23 Losartan [Cozaar] 50 mg PO HS 10/08/23 Simvastatin [Zocor] 40 mg PO HS 10/08/23 Solifenacin Succinate [Vesicare] 10 mg PO DAILY 10/08/23 Spironolactone [Aldactone] 12.5 mg PO DAILY 10/08/23 Triple [place] 1 tab PO BID 10/08/23 Ubidecarenone [Coenzyme Q10] 200 mg PO DAILY 10/08/23 diphenhydrAMINE HCL [Benadryl] 25 mg PO HS PRN 10/08/23 hydrOXYzine HCL [Atarax] 25 mg PO DAILY 10/08/23 tiZANidine [Zanaflex] 2 mg PO TID 10/08/23 Ondansetron Odt [Zofran ODT] 8 mg PO TID PRN #30 tab 10/09/23 metroNIDAZOLE [Flagyl] 500 mg PO TID 6 Days #18 tab 10/09/23 Controlled Substance Measures - Controlled Substance Measures Is patient prescribed a controlled substance at discharge?: No
== END ==
LOC: PNWHC3 12:48
PROVIDERS: ATTEND Specialist
DX: M50.121 Cervical disc disorder at C4-C5 level with radiculopathy (principal); M47.22 Other spondylosis with radiculopathy, cervical region; G89.29 Other chronic pain; Z87.891 Personal history of nicotine dependence; Z91.048 Other nonmedicinal substance allergy status; Z88.5 Allergy status to narcotic agent; Z88.8 Allergy status to other drugs, medicaments and biological substances
CPT/HCPCS: 99211

== ENCOUNTER → 2023-12-12 | Outpatient (CLI) | payer MEDICARE ==
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
== END | disposition home or self-care (01) ==
LOC: RADMRIMAIN 15:14
PROVIDERS: ATTEND Specialist
DX: M50.30 Other cervical disc degeneration, unspecified cervical region (principal); M43.12 Spondylolisthesis, cervical region; M43.8X2 Other specified deforming dorsopathies, cervical region; M48.02 Spinal stenosis, cervical region; G95.29 Other cord compression
CPT/HCPCS: 72141

== ENCOUNTER 2024-02-06 14:23 | Inpatient (IN) | payer MEDICARE ==
[2024-02-06] MEDS: SODIUM CHLORIDE 0.9% 500 ML 500 ML IV STA (15:50)
[2024-02-06 16:19] LABS: Basophils % (A) 0 %; Eosinophils # (A) 0.1 k/uL (0-0.7); Eosinophils % (A) 2 %; HCT 32.2 % (34.0-46.0); HGB 10.3 gm/dL (11.4-16.0); Hypochromasia Slight; Lymphocytes # (A) 0.9 k/uL (1.0-4.8); Lymphocytes % (A) 16 %; MCH 29.8 pg (25.0-35.0); MCHC 32.1 g/dL (31.0-37.0); MCV 92.8 fL (80.0-100.0); Mean Platelet Volume 8.5; Monocytes # (A) 0.2 k/uL (0-1.0); Monocytes % (A) 4 %; Neutrophils # (A) 4.5 k/uL (1.3-7.7); Neutrophils % (A) 76 %; Platelet Count 275 k/uL (150-450); RBC 3.47 m/uL (3.80-5.40); RDW 13.4 % (11.5-15.5); WBC 5.9 k/uL (3.8-10.6)
[2024-02-06 16:30] LABS: INR 1.2 (<1.2); Prothrombin Time 12.8 sec (10.0-12.5)
[2024-02-06 16:32] LABS: ALT 14 U/L (4-34); African American GFR (CKD) 10 (>60 ml/min/1.73 sqM); Albumin 4.4 g/dL (3.5-5.0); Anion Gap 12 mmol/L; Blood Urea Nitrogen 96 mg/dL (7-17); Calcium 10.8 mg/dL (8.4-10.2); Carbon Dioxide 16 mmol/L (22-30); Chloride 113 mmol/L (98-107); Creatine Kinase 176 U/L (30-135); Glucose 88 mg/dL (74-99); Non-African American GFR(CKD) 9 (>60 ml/min/1.73 sqM); Sodium 141 mmol/L (137-145); Total Bilirubin 0.7 mg/dL (0.2-1.3); Total Protein 7.3 g/dL (6.3-8.2)
[2024-02-06 16:40] LABS: NT-Pro-B-Type Natriuretic Pept 6510 pg/mL
[2024-02-06 16:49] LABS: AST 36 U/L (14-36); Alkaline Phosphatase 52 U/L (38-126); Magnesium 2.1 mg/dL (1.6-2.3)
--- NOTE | 2024-02-06 16:53 | XR ---
EXAMINATION TYPE: XR pelvis AP view DATE OF EXAM: 02/06/2024 4:36 PM CLINICAL INDICATION:Female, 78 years old with history of pain; [facility] COMPARISON: None TECHNIQUE: XR pelvis AP view, examined in a single projection. FINDINGS: Large amount stool throughout the colon. There is no evidence of fracture or dislocation. T here is no soft tissue abnormality. No abnormal calcifications are present. The spine appears intact . The hips appear intact. No significant degeneration. IMPRESSION: 1. No acute osseous pathology. 2. Large amount stool throughout the colon.
[2024-02-06 16:58] LABS: Potassium 5.9 mmol/L (3.5-5.1)
--- NOTE | 2024-02-06 16:58 | XR ---
EXAMINATION TYPE: XR chest 2V DATE OF EXAM: 02/06/2024 4:36 PM CLINICAL INDICATION:Female, 78 years old with history of Weakness; [facility] COMPARISON: None TECHNIQUE: XR chest 2V Frontal view of the chest. FINDINGS: Lungs/Pleura: There is no evidence of pleural effusion, focal consolidation, or pneumothorax. Pulmonary vascularity: Unremarkable. Heart/mediastinum: Cardiomediastinal silhouette is unremarkable. Musculoskeletal: No acute osseous pathology. IMPRESSION: No acute cardiopulmonary disease/process.
--- NOTE | 2024-02-06 17:11 | ED ---
Weakness HPI - General Chief complaint: Weakness Stated complaint: failure to thrive Time Seen by Provider: 02/06/24 14:30 Source: EMS Mode of arrival: EMS Limitations: altered mental status - History of Present Illness Initial comments: 38-year-old female with past medical history of high blood pressure, high cholesterol, chronic pain who presents to the emergency department with failure to thrive. Patient is coming from [facility]. Patient has been failure to thrive. It was reported that the patient normally ambulates on her own. Over the past week the patient has had increased weakness to where she is not ambulating. She has a significantly reduced appetite. Report of any fevers. No falls. No medication changes. Patient has very poor communication skills and does not answer much of my questions. She does admit to pain in her right hip and admits that this is why she is on pain medications. No abdominal pain. No other alleviating, precipitating or modifying factors - Related Data Home Medications Medication Instructions Recorded Confirmed Acetaminophen Tab [Tylenol] 1,000 mg PO TID 10/08/23 02/06/24 Alendronate Sodium [Fosamax] 70 mg PO Q7D 10/08/23 02/06/24 Calcium Carbonate [Calcium] 1,200 mg PO DAILY 10/08/23 02/06/24 Cyanocobalamin (Vitamin B-12) 1,000 mcg PO DAILY 10/08/23 02/06/24 [Vitamin B-12] Famotidine [Pepcid] 20 mg PO BID 10/08/23 02/06/24 Ferrous Gluconate 324 mg PO Q2D 10/08/23 02/06/24 Garlic 1,000 mg PO DAILY 10/08/23 02/06/24 Labetalol [Trandate] 100 mg PO BID 10/08/23 02/06/24 Lactobacillus Acidophilus 1 tab PO DAILY 10/08/23 02/06/24 [Acidophilus] Losartan [Cozaar] 50 mg PO HS 10/08/23 02/06/24 Simvastatin [Zocor] 40 mg PO HS 10/08/23 02/06/24 Solifenacin Succinate [Vesicare] 10 mg PO DAILY 10/08/23 02/06/24 Triple [place] 1 tab PO BID 10/08/23 02/06/24 Ubidecarenone [Coenzyme Q10] 200 mg PO DAILY 10/08/23 02/06/24 diphenhydrAMINE HCL [Benadryl] 25 mg PO HS PRN 10/08/23 02/06/24 hydrOXYzine HCL [Atarax] 25 mg PO DAILY 10/08/23 02/06/24 Cranberry (Unknown Dose) 1 tab PO DAILY 02/06/24 02/06/24 HYDROcodone/APAP 10-325MG [[place] 1 tab PO TID 02/06/24 02/06/24 10-325] Ondansetron Odt [Zofran ODT] 8 mg PO DIRECTED PRN 02/06/24 02/06/24 Spironolactone (Unknown Dose) 1 dose PO DAILY 02/06/24 02/06/24 Tizanidine (Unknown Dose) 1 dose PO TID 02/06/24 02/06/24 Allergies Allergy/AdvReac Type Severity Reaction Status Date / Time adhesive tape Allergy Unknown Verified 02/06/24 17:08 amlodipine Allergy Swelling Verified 02/06/24 17:08 codeine Allergy Rash/Hives Verified 02/06/24 17:08 duloxetine [From Cymbalta] Allergy Unknown Verified 02/06/24 17:08 lisinopril Allergy Unknown Verified 02/06/24 17:08 pregabalin [From Lyrica] Allergy Unknown Verified 02/06/24 17:08 venlafaxine [From Effexor] Allergy Rash/Hives Verified 02/06/24 17:08 morphine [From MS Contin] AdvReac Hallucinati Verified 02/06/24 17:08 ons Review of Systems ROS Statement: Those systems with pertinent positive or pertinent negative responses have been documented in the HPI. ROS Other: All systems not noted in ROS Statement are negative. Past Medical History Past Medical History: Blood Disorder, Hyperlipidemia, Hypertension, Myocardial Infarction ([place]) Additional Past Medical History / Comment(s): blind, spacer rt eye, legally blind left eye, anemia Last Myocardial Infarction Date:: ? History of Any Multi-Drug Resistant Organisms: C-DIFF Date of last positivie culture/infection: 2006 MDRO Source:: cdiff Past Surgical History: Appendectomy, Back Surgery, Heart Catheterization, Hysterectomy, Orthopedic Surgery Additional Past Surgical History / Comment(s): cystoscopy 08/2023, l4-5, l5-s1 laminectomy Past Anesthesia/Blood Transfusion Reactions: No Reported Reaction Past Psychological History: No Psychological Hx Reported Smoking Status: Former smoker Past Alcohol Use History: None Reported Past Drug Use History: None Reported - Past Family History Father Additional Family Medical History / Comment(s): coronary thrombosis General Exam Limitations: altered mental status General appearance: alert, lethargic Head exam: Present: atraumatic, normocephalic, normal inspection ENT exam: Present: mucous membranes dry Respiratory exam: Present: normal lung sounds bilaterally. Absent: respiratory distress, wheezes, rales, rhonchi, stridor Cardiovascular Exam: Present: regular rate, normal rhythm, normal heart sounds. Absent: systolic murmur, diastolic murmur, rubs, gallop, clicks GI/Abdominal exam: Present: soft, normal bowel sounds. Absent: distended, tenderness, guarding, rebound, rigid Neurological exam: Present: altered Psychiatric exam: Present: flat affect Course Vital Signs 02/06/24 02/06/24 02/06/24 14:24 15:55 16:55 Temperature 97.3 F L Pulse Rate 59 L 64 62 Respiratory 16 18 18 Rate Blood Pressure 128/97 132/59 153/95 O2 Sat by Pulse 96 96 96 Oximetry 02/06/24 20:00 Temperature Pulse Rate 61 Respiratory 18 Rate Blood Pressure 127/78 O2 Sat by Pulse 98 Oximetry Procedures - [place] Protocol (Time Out) Nurse: Ronel Myers Medical Decision Making - Medical Decision Making Was pt. sent in by a medical professional or institution (, MARIE, FINISHED CLOTH CHECKER, urgent care, hospital, or long-term...) When possible be specific @ -Patient was [facility] in from [facility] Did you speak to anyone other than the patient for history (EMS, parent, family, police, friend...)? What history was obtained from this source @ -Spoke with EMS for history. We also called the facility however we do not receive a call back Did you review nursing and triage notes (agree or disagree)? Why? @ -I reviewed and agree with nursing and triage notes Were old charts reviewed (outside hosp., previous admission, EMS record, old EKG, old radiological studies, urgent care reports/EKG's, long-term records)? Report findings @ -I reviewed the patient's discharge summary from September of this year. Patient was admitted for colitis and acute kidney injury Differential Diagnosis (chest pain, altered mental status, abdominal pain women, abdominal pain men, vaginal bleeding, weakness, fever, dyspnea, syncope, headache, dizziness, GI bleed, back pain, seizure, CVA, palpatations, mental health, musculoskeletal)? @ -Differential Weakness: Hypoglycemia, shock, sepsis, hyponatremia, anemia, infection, [place], ETOH, adverse medicine reaction, overdose, stroke, this is not meant to be an all-inclusive list. EKG interpreted by me (3pts min.). @ -Yes and demonstrates sinus bradycardia with a rate of 56. TX interval 162. QRS 106. QTc of 464. ST depression V5V6. No acute ST segment elevation X-rays interpreted by me (1pt min.). @ -None done CT interpreted by me (1pt min.). @ -None done U/S interpreted by me (1pt. min.). @ -None done What testing was considered but not performed or refused? (CT, X-rays, U/S, labs)? Why? @ -None What meds were considered but not given or refused? Why? @ -None Did you discuss the management of the patient with other professionals (professionals i.e. , PA, FINISHED CLOTH CHECKER, lab, RT, psych nurse, social worker aide, manager desktop, teacher, aoc director intelligence officer, case checker)? Give summary @ -With [facility] for admission and with Dr. Fajardo from nephrology Was smoking cessation discussed for >3mins.? @ -No Was critical care preformed (if so, how long)? @ -No Were there social determinants of health that impacted care today? How? (Homelessness, low income, unemployed, alcoholism, drug addiction, transportation, low edu. Level, literacy, decrease access to med. care, mcc, rehab)? @ -Resides at [facility] home Was there de-escalation of care discussed even if they declined (Discuss DNR or withdrawal of care, Hospice)? DNR status @ -No What co-morbidities impacted this encounter? (DM, HTN, Smoking, COPD, CAD, Cancer, CVA, ARF, Chemo, Hep., AIDS, mental health diagnosis, sleep apnea, morbid obesity)? @ -Chronic pain, hypertension Was patient admitted / discharged? Hospital course, mention meds given and route, prescriptions, significant lab abnormalities, going to OR and other pe rtinent info. @ -Arrival patient seen and evaluated in room 5. Thorough history and physical exam was performed. IV access was established. Laboratory studies are conducted. Labs are remarkable for a significantly elevated creatinine of 4.4. Torres is placed. There is no return of urine. She will be continued on IV fluids at this time patient requires admission at this time. Spoke with [facility] for admission. Also spoke with Dr. Fajardo who is aware that the patient has no urine output. Will continue with IV fluids and repeat potassium in the morning. No need to administer any other medications for the potassium at this time as it is a hemolyzed specimen and patient has prerenal azotemia which will likely correct with fluids Undiagnosed new problem with uncertain prognosis? @ -No Drug Therapy requiring intensive monitoring for toxicity (Heparin, Nitro, Insulin, Cardizem)? @ -No Were any procedures done? @ -No Diagnosis/symptom? @ -Failure to thrive, acute kidney injury Acute, or Chronic, or Acute on Chronic? @ -acute Uncomplicated (without systemic symptoms) or Complicated (systemic symptoms)? @ -Complicated Side effects of treatment? @ -No Exacerbation, Progression, or Severe Exacerbation? @ -No Poses a threat to life or bodily function? How? (Chest pain, [place], [place], pneumonia, PE, COPD, DKA, ARF, appy, cholecystitis, CVA, Diverticulitis, Homicidal, Suicidal, threat to staff... and all critical care pts) @ -yes as patient is in renal failure - Lab Data Result diagrams: 02/06/24 15:30 02/06/24 15:30 Lab Results 02/06/24 02/06/24 02/06/24 Range/Units 15:30 15:30 15:30 WBC 5.9 (3.8-10.6) k/uL RBC 3.47 L (3.80-5.40) m/uL Hgb 10.3 L (11.4-16.0) gm/dL Hct 32.2 L (34.0-46.0) % MCV 92.8 (80.0-100.0) fL MCH 29.8 (25.0-35.0) pg MCHC 32.1 (31.0-37.0) g/dL RDW 13.4 (11.5-15.5) % Plt Count 275 (150-450) k/uL MPV 8.5 Neutrophils % 76 % Lymphocytes % 16 % Monocytes % 4 % Eosinophils % 2 % Basophils % 0 % Neutrophils # 4.5 (1.3-7.7) k/uL Lymphocytes # 0.9 L (1.0-4.8) k/uL Monocytes # 0.2 (0-1.0) k/uL Eosinophils # 0.1 (0-0.7) k/uL Basophils # 0.0 (0-0.2) k/uL Hypochromasia Slight PT 12.8 H (10.0-12.5) sec INR 1.2 H (<1.2) Sodium 141 (137-145) mmol/L Potassium 5.9 H (3.5-5.1) mmol/L Chloride 113 H (98-107) mmol/L Carbon Dioxide 16 L (22-30) mmol/L Anion Gap 12 mmol/L BUN 96 H (7-17) mg/dL Creatinine 4.46 H (0.52-1.04) mg/dL Est GFR (CKD-EPI)AfAm 10 (>60 ml/min/1.73 sqM) Est GFR (CKD-EPI)NonAf 9 (>60 ml/min/1.73 sqM) Glucose 88 (74-99) mg/dL Plasma Lactic Acid [place] (0.7-2.0) mmol/L Calcium 10.8 H (8.4-10.2) mg/dL Magnesium 2.1 (1.6-2.3) mg/dL Total Bilirubin 0.7 (0.2-1.3) mg/dL AST 36 (14-36) U/L ALT 14 (4-34) U/L Alkaline Phosphatase 52 (38-126) U/L Creatine Kinase 176 H (30-135) U/L Troponin I (0.000-0.034) ng/mL NT-Pro-B Natriuret Pep 6510 pg/mL Total Protein 7.3 (6.3-8.2) g/dL Albumin 4.4 (3.5-5.0) g/dL Influenza Type A (PCR) (Not Detectd) Influenza Type B (PCR) (Not Detectd) RSV (PCR) (Not Detectd) SARS-CoV-2 (PCR) (Not Detectd) 02/06/24 02/06/24 02/06/24 Range/Units 15:30 15:30 15:30 WBC (3.8-10.6) k/uL RBC (3.80-5.40) m/uL Hgb (11.4-16.0) gm/dL Hct (34.0-46.0) % MCV (80.0-100.0) fL MCH (25.0-35.0) pg MCHC (31.0-37.0) g/dL RDW (11.5-15.5) % Plt Count (150-450) k/uL MPV Neutrophils % % Lymphocytes % % Monocytes % % Eosinophils % % Basophils % % Neutrophils # (1.3-7.7) k/uL Lymphocytes # (1.0-4.8) k/uL Monocytes # (0-1.0) k/uL Eosinophils # (0-0.7) k/uL Basophils # (0-0.2) k/uL Hypochromasia PT (10.0-12.5) sec INR (<1.2) Sodium (137-145) mmol/L Potassium (3.5-5.1) mmol/L Chloride (98-107) mmol/L Carbon Dioxide (22-30) mmol/L Anion Gap mmol/L BUN (7-17) mg/dL Creatinine (0.52-1.04) mg/dL Est GFR (CKD-EPI)AfAm (>60 ml/min/1.73 sqM) Est GFR (CKD-EPI)NonAf (>60 ml/min/1.73 sqM) Glucose (74-99) mg/dL Plasma Lactic Acid [place] 1.2 (0.7-2.0) mmol/L Calcium (8.4-10.2) mg/dL Magnesium (1.6-2.3) mg/dL Total Bilirubin (0.2-1.3) mg/dL AST (14-36) U/L ALT (4-34) U/L Alkaline Phosphatase (38-126) U/L Creatine Kinase (30-135) U/L Troponin I 0.115 H* (0.000-0.034) ng/mL NT-Pro-B Natriuret Pep pg/mL Total Protein (6.3-8.2) g/dL Albumin (3.5-5.0) g/dL Influenza Type A (PCR) Not Detected (Not Detectd) Influenza Type B (PCR) Not Detected (Not Detectd) RSV (PCR) Not Detected (Not Detectd) SARS-CoV-2 (PCR) Not Detected (Not Detectd) Disposition Clinical Impression: TAWANA (acute kidney injury) Disposition: ADMITTED IP TO THIS [facility] Condition: Serious Is patient prescribed a controlled substance at d/c from ED?: No Time of Disposition: 18:52 Decision to Admit Reason: Admit from EC Decision Date: 02/06/24 Decision Time: 18:52
[2024-02-06] MEDS ORDERED: NALOXONE 0.4 MG/ML 1 ML VIAL IV PRN (18:52)
[2024-02-06] MEDS: SODIUM CHLORIDE 0.9% 1,000 ML IV SCH (19:03)
--- NOTE | 2024-02-06 20:20 | US ---
EXAMINATION TYPE: US renals and bladder DATE OF EXAM: 02/06/2024 COMPARISON: Ct 10/07/2023 CLINICAL INDICATION: Female, 78 years old with history of tawana; TA[place]NA EXAM MEASUREMENTS: Right Kidney: 7.9 x 3.3 x 4.4 cm Left Kidney: 8.8 x 4.7 x 4.0 cm Limited due to limited patient mobility and rib shadows Right Kidney: wnl as best seen , no evidence for obstruction or mass. Left Kidney: wnl as best seen , no evidence for obstruction or mass. Bladder: Bladder diverticulum seen on the left side of the bladder. There is a 4mm thick echogenic ar ea seen within the posterior aspect of the bladder that appears mobile. ? layering debris vs other Bilateral Jets seen: Attempted, not seen IMPRESSION: 1. No evidence for obstructive uropathy. 2. Layering debris in the bladder with bladder diverticula correlate with urinalysis for infection.
[2024-02-07] MEDS: SODIUM ZIRCONIUM CYCLOSILICATE 10 GM PACKET PO ONE (00:03)
[2024-02-07 02:12] LABS: Basophils % (A) 1 %; Eosinophils # (A) 0.2 k/uL (0-0.7); Eosinophils % (A) 3 %; HCT 33.5 % (34.0-46.0); HGB 10.2 gm/dL (11.4-16.0); Hypochromasia Marked; Lymphocytes % (A) 15 %; MCH 29.6 pg (25.0-35.0); MCHC 30.4 g/dL (31.0-37.0); MCV 97.4 fL (80.0-100.0); Mean Platelet Volume 8.8; Monocytes # (A) 0.6 k/uL (0-1.0); Monocytes % (A) 9 %; Neutrophils # (A) 4.4 k/uL (1.3-7.7); Neutrophils % (A) 70 %; Platelet Count 173 k/uL (150-450); RBC 3.44 m/uL (3.80-5.40); RDW 13.4 % (11.5-15.5); WBC 6.3 k/uL (3.8-10.6)
[2024-02-07 02:25] LABS: Glucose 84 mg/dL (74-99)
[2024-02-07 02:26] LABS: ALT 14 U/L (4-34); AST 38 U/L (14-36); African American GFR (CKD) 12 (>60 ml/min/1.73 sqM); Albumin 3.8 g/dL (3.5-5.0); Alkaline Phosphatase 52 U/L (38-126); Anion Gap 11 mmol/L; Blood Urea Nitrogen 92 mg/dL (7-17); Calcium 10.4 mg/dL (8.4-10.2); Carbon Dioxide 14 mmol/L (22-30); Chloride 116 mmol/L (98-107); Non-African American GFR(CKD) 10 (>60 ml/min/1.73 sqM); Sodium 141 mmol/L (137-145); Total Bilirubin 0.6 mg/dL (0.2-1.3); Total Protein 6.5 g/dL (6.3-8.2)
[2024-02-07] MEDS: HYDROcodone/APAP 10-325MG 1 EACH TAB PO SCH (04:16)
[2024-02-07 06:54] LABS: Appearance,Urine Clear (Clear); Bacteria,Urine Moderate /hpf; Bilirubin,Urine Negative (Negative); Blood,Urine Negative (Negative); Color,Urine Colorless; Glucose,Urine (UA) Negative (Negative); Hyaline Casts,Urine 1 /lpf (0-2); Ketones,Urine Negative (Negative); Leukocyte Esterase,Urine Moderate (Negative); Mucus,Urine Rare /hpf; Nitrite,Urine Positive (Negative); Protein,Urine Negative (Negative); RBC,Urine <1 /hpf (0-5); Specific Gravity,Urine 1.015 (1.001-1.035); Squamous Epithelial Cell,Urine <1 /hpf (0-4); Urobilinogen,Urine <2.0 mg/dL (<2.0); WBC,Urine 5 /hpf (0-5)
[2024-02-07 07:40] LABS: Basophils % (A) 1 %; Eosinophils # (A) 0.1 k/uL (0-0.7); Eosinophils % (A) 3 %; HCT 31.1 % (34.0-46.0); HGB 9.7 gm/dL (11.4-16.0); Hypochromasia Marked; Lymphocytes # (A) 0.8 k/uL (1.0-4.8); Lymphocytes % (A) 15 %; MCH 29.8 pg (25.0-35.0); MCV 96.2 fL (80.0-100.0); Mean Platelet Volume 8.2; Monocytes # (A) 0.3 k/uL (0-1.0); Monocytes % (A) 6 %; Neutrophils # (A) 3.8 k/uL (1.3-7.7); Neutrophils % (A) 73 %; Platelet Count 251 k/uL (150-450); RBC 3.24 m/uL (3.80-5.40); RDW 13.3 % (11.5-15.5); WBC 5.2 k/uL (3.8-10.6)
[2024-02-07 07:58] LABS: African American GFR (CKD) 15 (>60 ml/min/1.73 sqM); Anion Gap 9 mmol/L; Blood Urea Nitrogen 81 mg/dL (7-17); Calcium 10.1 mg/dL (8.4-10.2); Carbon Dioxide 14 mmol/L (22-30); Chloride 118 mmol/L (98-107); Glucose 69 mg/dL (74-99); Non-African American GFR(CKD) 13 (>60 ml/min/1.73 sqM); Potassium 4.8 mmol/L (3.5-5.1); Sodium 141 mmol/L (137-145)
[2024-02-07] MEDS ORDERED: NON FORMULARY DRUG (Garlic [Garlic] 1,000 MG Capsule) PO SCH (09:00)
[2024-02-07] MEDS ORDERED: FAMOTIDINE 20 MG TAB PO SCH (09:00)
[2024-02-07] MEDS: TROSPIUM CHLORIDE 20 MG TABLET PO SCH (10:42)
[2024-02-07] MEDS: FAMOTIDINE 20 MG TAB PO SCH (10:42)
[2024-02-07] MEDS: LABETALOL 100 MG TAB PO SCH (10:43)
[2024-02-07] MEDS: ACETAMINOPHEN TAB 500 MG TAB PO SCH (10:43)
[2024-02-07] MEDS: CYANOCOBALAMIN 500 MCG TAB PO SCH (10:45)
[2024-02-07] MEDS: LACTOBACILLUS ACIDOPHILUS/PECT 1 EACH CAPSULE PO SCH (10:45)
[2024-02-07 11:25] VITALS: BMI 17.6
--- NOTE | 2024-02-07 12:08 | P.NPCON ---
History of Present Illness - Reason for Consult acute renal failure - History of Present Illness patient is a 78-year-old female with history of hypertension coronary artery disease who is admitted to the hospital with altered mentation. Patient resides at assisted living and was noted to have increased weakness with decreased oral intake. No history of fever chills nausea vomiting abdominal pain or diarrhea. No history of chest pains or shortness of breath. serum creatinine was 4.4 on admission and has decreased to 3.2 today. Previous creatinine was 0.9 on 10/09/2023. No evidence of hypotension No history of NSAIDs noted. Patient was maintained on angiotensin receptor blockers, currently on hold. No evidence of obstructive uropathy noted on ultrasound of the kidneys. Patient is currently maintained on IV fluids. Minimal urine output noted in the ER. Review of Systems as per HPI Past Medical History Past Medical History: Blood Disorder, Hyperlipidemia, Hypertension, Myocardial Infarction ([place]) Additional Past Medical History / Comment(s): blind, spacer rt eye, legally blind left eye, anemia Last Myocardial Infarction Date:: ? History of Any Multi-Drug Resistant Organisms: C-DIFF Date of last positivie culture/infection: 2006 MDRO Source:: cdiff Past Surgical History: Appendectomy, Back Surgery, Heart Catheterization, Hysterectomy, Orthopedic Surgery Additional Past Surgical History / Comment(s): cystoscopy 08/2023, l4-5, l5-s1 laminectomy Past Anesthesia/Blood Transfusion Reactions: No Reported Reaction Past Psychological History: No Psychological Hx Reported Smoking Status: Former smoker Past Alcohol Use History: None Reported Past Drug Use History: None Reported - Past Family History Father Additional Family Medical History / Comment(s): coronary thrombosis Medications and Allergies Home Medications Medication Instructions Recorded Confirmed Type Acetaminophen Tab [Tylenol] 1,000 mg PO TID 10/08/23 02/06/24 History Alendronate Sodium [Fosamax] 70 mg PO Q7D 10/08/23 02/06/24 History Calcium Carbonate [Calcium] 1,200 mg PO DAILY 10/08/23 02/06/24 History Cyanocobalamin (Vitamin B-12) 1,000 mcg PO DAILY 10/08/23 02/06/24 History [Vitamin B-12] Famotidine [Pepcid] 20 mg PO BID 10/08/23 02/06/24 History Ferrous Gluconate 324 mg PO Q2D 10/08/23 02/06/24 History Garlic 1,000 mg PO DAILY 10/08/23 02/06/24 History Labetalol [Trandate] 100 mg PO BID 10/08/23 02/06/24 History Lactobacillus Acidophilus 1 tab PO DAILY 10/08/23 02/06/24 History [Acidophilus] Losartan [Cozaar] 50 mg PO HS 10/08/23 02/06/24 History Simvastatin [Zocor] 40 mg PO HS 10/08/23 02/06/24 History Solifenacin Succinate [Vesicare] 10 mg PO DAILY 10/08/23 02/06/24 History Triple [place] 1 tab PO BID 10/08/23 02/06/24 History Ubidecarenone [Coenzyme Q10] 200 mg PO DAILY 10/08/23 02/06/24 History diphenhydrAMINE HCL [Benadryl] 25 mg PO HS PRN 10/08/23 02/06/24 History hydrOXYzine HCL [Atarax] 25 mg PO DAILY 10/08/23 02/06/24 History HYDROcodone/APAP 10-325MG [[place] 1 tab PO TID 02/06/24 02/06/24 History 10-325] Cranberry 42,000 Mg 42,000 mg PO DAILY 02/07/24 02/07/24 History Ondansetron Odt [Zofran Odt] 8 mg PO BID PRN 02/07/24 02/07/24 History Spironolactone [Aldactone] 25 mg PO DAILY 02/07/24 02/07/24 History tiZANidine [Zanaflex] 4 mg PO TID PRN 02/07/24 02/07/24 History Allergies Allergy/AdvReac Type Severity Reaction Status Date / Time adhesive tape Allergy Unknown Verified 02/06/24 17:08 amlodipine Allergy Swelling Verified 02/06/24 17:08 codeine Allergy Rash/Hives Verified 02/06/24 17:08 duloxetine [From Cymbalta] Allergy Unknown Verified 02/06/24 17:08 lisinopril Allergy Unknown Verified 02/06/24 17:08 pregabalin [From Lyrica] Allergy Unknown Verified 02/06/24 17:08 venlafaxine [From Effexor] Allergy Rash/Hives Verified 07/24/24 17:08 morphine [From MS Contin] AdvReac Hallucinati Verified 02/06/24 17:08 ons Physical Exam Vitals: Vital Signs Temp Pulse Pulse Resp BP BP Pulse Ox 02/07/24 10:30 60 16 135/81 100 02/07/24 04:00 98.0 F 68 18 138/88 96 02/07/24 02:00 16 02/06/24 23:17 98.4 F 70 18 144/98 94 L 02/06/24 20:00 61 18 127/78 98 02/06/24 16:55 62 18 153/95 96 02/06/24 15:55 64 18 132/59 96 02/06/24 14:24 97.3 F L 59 L 16 128/97 96 Intake and Output 02/06/24 02/07/24 02/07/24 22:59 06:59 14:59 Intake Total 300 Output Total 300 150 Balance 0 -150 Intake: Oral 300 Output: Urine 300 150 Uretheral ([place]) 0 Other: Voiding Method Indwelling Catheter Indwelling Catheter # Voids 2 Weight 40.823 kg 40.823 kg patient is awake, comfortable, no acute distress. Examination of the heart S1 and S2 Examination of the lungs bilateral breath sounds are heard Abdomen is soft nontender Examination lower extremity shows no significant edema BLOOD BANK BOOKING CLERK exam shows patient is moving all 4 extremities. Results - Lab Results Most recent lab results Calcium 10.1 mg/dL (8.4-10.2) 02/07/24 06:52 Magnesium 2.0 mg/dL (1.6-2.3) 02/07/24 01:00 02/07/24 06:52 02/07/24 06:52 Assessment and Plan Assessment: 1. Acute kidney injury, ATN. Renal function is improving. UA shows no protein or blood, 1 hyaline cast noted. Ultrasound shows no evidence of obstructive uropathy. 4 mm echogenic area noted in the posterior aspect of the bladder. 2. Non-gap Metabolic acidosis associated with acute kidney injury 3. Hyperkalemia associated with acute kidney injury metabolic acidosis, angiotensin receptor blockers as well as Aldactone prior to admission. No active GI bleeding noted at this time. Blood sugars have not been elevated. 4. Mild hypercalcemia secondary to calcium supplements associated with volume contraction 5. Hypertension Plan: change IV fluids to IV bicarb. Avoid nephrotoxic agents. Continue to hold losartan and Aldactone. Repeat labs in a.m. DC calcium supplements and avoid upon discharge as well. Check 25-hydroxy vitamin D level along with one 25-hydroxy vitamin D as well as PTH. Consult urology if renal function does not improve for further. Rule out underlying bladder outlet obstruction due to ? mobile mass in the posterior aspect of the bladder. Thank you for the consultation. We will continue to follow the patient with you during her hospitalization.
[2024-02-07] MEDS: DEXTROSE 5% IN WATER 1,000 ML with SODIUM BICARB (1 MEQ/ML) 150 ML IV SCH (12:14)
[2024-02-07] MEDS: ENOXAPARIN 30 MG/0.3 ML SYRINGE SQ SCH (12:15)
--- NOTE | 2024-02-07 17:36 | P.HPIM ---
History of Present Illness H&P Date: 02/07/24 Chief Complaint: Increased weakness This is a 78-year-old patient who lives at a assisted living [facility]. As per the ER patient normally able to ambulate on her own. Over the last 1 week patient been having increased weakness and not able to ambulate. Decreased appetite. No falls reported. No fever no chills. Patient herself not a good historian. Normally 1 or 2 bowel movement every week. Patient is blind cannot see. Has slight abdominal discomfort. No nausea vomiting. Denies any urinary symptoms. Review of systems: GEN.: Tired decreased appetite weak EYES: Blind HEENT: None NECK: None RESPIRATORY: None CARDIOVASCULAR: None GASTROINTESTINAL: Some abdominal pain GENITOURINARY: None MUSCULOSKELETAL: None LYMPHATICS: None HEMATOLOGICAL: None PSYCHIATRY: Forgetful NEUROLOGICAL: None Social history: Lives at [facility]. Former smoker. Physical examination: VITAL SIGNS: 97.3, 59, 16, 128/97, 96% room air GENERAL: BMI 17.6, laying in bed awake. EYES: Absent right eye. Patient is blind l. HEENT: External appearance of nose and ears normal, oral cavity grossly normal. NECK: JVD not raised; masses not palpable. HEART: First and second heart sounds are normal; no edema. LUNGS: Respiratory rate normal; decreased breath sound. ABDOMEN: Soft, mild tenderness no guarding rigidity r, liver spleen not palpable, no masses palpable. PSYCH: Patient able to answer simple questions. But forgetful l. MUSCULOSKELETAL:No Clubbing/cyanosis;muscles-grossly intact. OA multiple joints NEUROLOGICAL: Cranial nerves grossly intact; no facial asymmetry, power and sensation grossly intact. LYMPHATICS: No lymph nodes palpable in the axilla and neck INVESTIGATIONS, reviewed in the clinical context: February 06: White count 5.2 hemoglobin 9.7 platelets 251 potassium 4.8 BUN 81 creatinine 3.2 February 05: White count 5.9 hemoglobin 10.3 sodium 141 potassium 5.9 BUN 96 creatinine 4.46 bicarb 16 EKG tracing personally reviewed by me-normal sinus rhythm Chest x-ray film personally reviewed by me-hyperinflation. Cardiomegaly X-ray abdomen: Large amount of stool throughout the colon Renal ultrasound: Unremarkable UA: Positive for nitrate leukoesterase Previous labs: Creatinine 0.9 on October 09, 2023 Assessment plan: -Acute kidney injury. Possibly ATN Hold Cozaar. Aldactone. IV fluids. Renal ultrasound unremarkable. Nephrology consulted -Metabolic acidosis due to acute kidney injury Bicarbonate drip -Mild to moderate cognitive impairment possible late onset Alzheimer's dementia. -Troponinemia in the setting of acute kidney injury. Patient has no cardiac symptoms. -Hyperkalemia secondary to acute kidney injury: Better Received Lokelma -Patient is blind. Right eye enucleated -GERD Pepcid -Essential hypertension Hold Cozaar. Labetalol 50 mg twice daily -Primary osteoarthritis Pain medication as needed -Hyperlipidemia Hold Zocor because of weakness -Full code - Discussed with patient Past Medical History Past Medical History: Blood Disorder, Hyperlipidemia, Hypertension, Myocardial Infarction ([place]) Additional Past Medical History / Comment(s): blind, spacer rt eye, legally blind left eye, anemia Last Myocardial Infarction Date:: ? History of Any Multi-Drug Resistant Organisms: C-DIFF Date of last positivie culture/infection: 2006 MDRO Source:: cdiff Past Surgical History: Appendectomy, Back Surgery, Heart Catheterization, Hysterectomy, Orthopedic Surgery Additional Past Surgical History / Comment(s): cystoscopy 08/2023, l4-5, l5-s1 laminectomy Past Anesthesia/Blood Transfusion Reactions: No Reported Reaction Past Psychological History: No Psychological Hx Reported Smoking Status: Former smoker Past Alcohol Use History: None Reported Past Drug Use History: None Reported - Past Family History Father Additional Family Medical History / Comment(s): coronary thrombosis Medications and Allergies Home Medications Medication Instructions Recorded Confirmed Type Acetaminophen Tab [Tylenol] 1,000 mg PO TID 10/08/23 02/06/24 History Alendronate Sodium [Fosamax] 70 mg PO Q7D 10/08/23 02/06/24 History Calcium Carbonate [Calcium] 1,200 mg PO DAILY 10/08/23 02/06/24 History Cyanocobalamin (Vitamin B-12) 1,000 mcg PO DAILY 10/08/23 02/06/24 History [Vitamin B-12] Famotidine [Pepcid] 20 mg PO BID 10/08/23 02/06/24 History Ferrous Gluconate 324 mg PO Q2D 10/08/23 02/06/24 History Garlic 1,000 mg PO DAILY 10/08/23 02/06/24 History Labetalol [Trandate] 100 mg PO BID 10/08/23 02/06/24 History Lactobacillus Acidophilus 1 tab PO DAILY 10/08/23 02/06/24 History [Acidophilus] Losartan [Cozaar] 50 mg PO HS 10/08/23 02/06/24 History Simvastatin [Zocor] 40 mg PO HS 10/08/23 02/06/24 History Solifenacin Succinate [Vesicare] 10 mg PO DAILY 10/08/23 02/06/24 History Triple Sylvester 1 tab PO BID 10/08/23 02/06/24 History Ubidecarenone [Coenzyme Q10] 200 mg PO DAILY 10/08/23 02/06/24 History diphenhydrAMINE HCL [Benadryl] 25 mg PO HS PRN 10/08/23 02/06/24 History hydrOXYzine HCL [Atarax] 25 mg PO DAILY 10/08/23 02/06/24 History HYDROcodone/APAP 10-325MG [Carleton 1 tab PO TID 02/06/24 02/06/24 History 10-325] Cranberry 42,000 Mg 42,000 mg PO DAILY 02/07/24 02/07/24 History Ondansetron Odt [Zofran Odt] 8 mg PO BID PRN 02/07/24 02/07/24 History Spironolactone [Aldactone] 25 mg PO DAILY 02/07/24 02/07/24 History tiZANidine [Zanaflex] 4 mg PO TID PRN 02/07/24 02/07/24 History Allergies Allergy/AdvReac Type Severity Reaction Status Date / Time adhesive tape Allergy Unknown Verified 02/06/24 17:08 amlodipine Allergy Swelling Verified 02/06/24 17:08 codeine Allergy Rash/Hives Verified 02/06/24 17:08 duloxetine [From Cymbalta] Allergy Unknown Verified 02/06/24 17:08 lisinopril Allergy Unknown Verified 02/06/24 17:08 pregabalin [From Lyrica] Allergy Unknown Verified 02/06/24 17:08 venlafaxine [From Effexor] Allergy Rash/Hives Verified 02/06/24 17:08 morphine [From MS Contin] AdvReac Hallucinati Verified 02/06/24 17:08 ons Physical Exam Vitals: Vital Signs Temp Pulse Pulse Resp BP BP Pulse Ox 02/07/24 04:00 98.0 F 68 18 138/88 96 02/07/24 02:00 16 02/06/24 23:17 98.4 F 70 18 144/98 94 L 02/06/24 20:00 61 18 127/78 98 02/06/24 16:55 62 18 153/95 96 02/06/24 15:55 64 18 132/59 96 02/06/24 14:24 97.3 F L 59 L 16 128/97 96 Intake and Output 02/06/24 02/07/24 02/07/24 22:59 06:59 14:59 Intake Total 300 Output Total 300 150 Balance 0 -150 Intake: Oral 300 Output: Urine 300 150 Uretheral (Tor[place]) 0 Other: Voiding Method Indwelling Catheter # Voids 2 Weight 40.823 kg Results CBC & Chem 7: 02/07/24 06:52 02/07/24 06:52 Labs: Abnormal Lab Results - Last 24 Hours (Table) 02/06/24 02/06/24 02/06/24 Range/Units 15:30 15:30 15:30 RBC 3.47 L (3.80-5.40) m/uL Hgb 10.3 L (11.4-16.0) gm/dL Hct 32.2 L (34.0-46.0) % MCHC (31.0-37.0) g/dL Lymphocytes # 0.9 L (1.0-4.8) k/uL PT 12.8 H (10.0-12.5) sec INR 1.2 H (<1.2) Potassium 5.9 H (3.5-5.1) mmol/L Chloride 113 H (98-107) mmol/L Carbon Dioxide 16 L (22-30) mmol/L BUN 96 H (7-17) mg/dL Creatinine 4.46 H (0.52-1.04) mg/dL Glucose (74-99) mg/dL Calcium 10.8 H (8.4-10.2) mg/dL AST (14-36) U/L Creatine Kinase 176 H (30-135) U/L Troponin I (0.000-0.034) ng/mL Urine Nitrite (Negative) Ur Leukocyte Esterase (Negative) Urine Bacteria (None) /hpf Urine Mucus (None) /hpf 02/06/24 02/07/24 02/07/24 Range/Units 15:30 01:00 01:00 RBC 3.44 L (3.80-5.40) m/uL Hgb 10.2 L (11.4-16.0) gm/dL Hct 33.5 L (34.0-46.0) % MCHC 30.4 L (31.0-37.0) g/dL Lymphocytes # (1.0-4.8) k/uL PT (10.0-12.5) sec INR (<1.2) Potassium (3.5-5.1) mmol/L Chloride 116 H (98-107) mmol/L Carbon Dioxide 14 L (22-30) mmol/L BUN 92 H (7-17) mg/dL Creatinine 3.94 H (0.52-1.04) mg/dL Glucose (74-99) mg/dL Calcium 10.4 H (8.4-10.2) mg/dL AST 38 H (14-36) U/L Creatine Kinase (30-135) U/L Troponin I 0.115 H* (0.000-0.034) ng/mL Urine Nitrite (Negative) Ur Leukocyte Esterase (Negative) Urine Bacteria (None) /hpf Urine Mucus (None) /hpf 02/07/24 02/07/24 02/07/24 Range/Units 06:15 06:52 06:52 RBC 3.24 L (3.80-5.40) m/uL Hgb 9.7 L (11.4-16.0) gm/dL Hct 31.1 L (34.0-46.0) % MCHC (31.0-37.0) g/dL Lymphocytes # 0.8 L (1.0-4.8) k/uL PT (10.0-12.5) sec INR (<1.2) Potassium (3.5-5.1) mmol/L Chloride 118 H (98-107) mmol/L Carbon Dioxide 14 L (22-30) mmol/L BUN 81 H (7-17) mg/dL Creatinine 3.20 H (0.52-1.04) mg/dL Glucose 69 L (74-99) mg/dL Calcium (8.4-10.2) mg/dL AST (14-36) U/L Creatine Kinase (30-135) U/L Troponin I (0.000-0.034) ng/mL Urine Nitrite Positive H (Negative) Ur Leukocyte Esterase Moderate H (Negative) Urine Bacteria Moderate H (None) /hpf Urine Mucus Rare H (None) /hpf
[2024-02-07] MEDS: ATORVASTATIN 20 MG TAB PO SCH (20:56)
[2024-02-08 12:58] LABS: African American GFR (CKD) 48 (>60 ml/min/1.73 sqM); Anion Gap 7 mmol/L; Blood Urea Nitrogen 51 mg/dL (7-17); Calcium 9.5 mg/dL (8.4-10.2); Carbon Dioxide 23 mmol/L (22-30); Chloride 109 mmol/L (98-107); Glucose 96 mg/dL (74-99); Non-African American GFR(CKD) 42 (>60 ml/min/1.73 sqM); Potassium 4.3 mmol/L (3.5-5.1); Sodium 139 mmol/L (137-145)
--- NOTE | 2024-02-08 13:14 | P.PN ---
Subjective patient is seen for follow-up for acute kidney injury. Currently maintained on IV fluids. renal function has improved with serum creatinine down to 1.2. Acidosis has improved as well with serum CO2 at 23. Objective - Vital Signs Vital signs: Vital Signs Temp 98.2 F 02/08/24 09:20 Pulse 75 02/08/24 11:25 Resp 16 02/08/24 11:25 BP 143/81 02/08/24 11:25 Pulse Ox 97 02/08/24 11:25 FiO2 Intake & Output 02/07/24 02/08/24 02/08/24 18:59 06:59 18:59 Intake Total 240 Output Total 350 300 400 Balance -350 -300 -160 Weight 40.823 kg 40 kg Intake: Oral 240 Output: Urine 350 300 400 Other: Voiding Method External Catheter Incontinent Bedside Commode External Catheter Incontinent External Catheter # Voids 1 - Exam patient is awake, comfortable, no acute distress. 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 - Labs CBC & Chem 7: 02/07/24 06:52 02/08/24 12:15 Labs: Abnormal Lab Results - Last 24 Hours (Table) 02/08/24 Range/Units 12:15 Chloride 109 H (98-107) mmol/L BUN 51 H (7-17) mg/dL Creatinine 1.23 H (0.52-1.04) mg/dL Assessment and Plan Assessment: 1. Acute kidney injury, ATN. Renal function is improving. UA shows no protein or blood, 1 hyaline cast noted. Ultrasound shows no evidence of obstructive uropathy. 4 mm echogenic area noted in the posterior aspect of the bladder. 2. Non-gap Metabolic acidosis associated with acute kidney injury 3. Hyperkalemia associated with acute kidney injury metabolic acidosis, a ngiotensin receptor blockers as well as Aldactone prior to admission. No active GI bleeding noted at this time. Blood sugars have not been elevated. 4. Mild hypercalcemia secondary to calcium supplements associated with volume contraction, improved 5. Hypertension Plan: continue with IV bicarb for 1 more day Avoid nephrotoxic agents. Continue to hold losartan and Aldactone. Repeat labs in a.m. continue off of calcium supplements.
--- NOTE | 2024-02-08 14:21 | P.PN ---
Progress Note - Text Progress Note Date: 02/08/24 Chief Complaint: Increased weakness This is a 78-year-old patient who [facility]. As per the ER patient normally able to ambulate on her own. Over the last 1 week patient been having increased weakness and not able to ambulate. Decreased appetite. No falls reported. No fever no chills. Patient herself not a good historian. Normally 1 or 2 bowel movement every week. Patient is blind cannot see. Has slight abdominal discomfort. No nausea vomiting. Denies any urinary symptoms. February 07: Admitted with acute kidney injury. Aldactone and Cozaar held. Oral intake better. Creatinine coming down. Bicarbonate improved. Will stop bicarbonate drip. With physical therapy patient walked about 20 feet. Active Medications Acetaminophen (Acetaminophen Tab 500 Mg Tab) 1,000 mg PO TID [facility] Last Admin: 02/08/24 10:42 Dose: 1,000 mg Hydrocodone Bitart/Acetaminophen (Hydrocodone/Apap 10-325mg 1 Each Tab) 1 each PO TID [facility] Last Admin: 02/08/24 10:42 Dose: 1 each Atorvastatin Calcium (Atorvastatin 20 Mg Tab) 20 mg PO HS [facility] Last Admin: 02/07/24 20:56 Dose: 20 mg Cyanocobalamin (Cyanocobalamin 500 Mcg Tab) 1,000 mcg PO DAILY [facility] Last Admin: 02/08/24 10:41 Dose: 1,000 mcg Enoxaparin Sodium (Enoxaparin 30 Mg/0.3 Ml Syringe) 30 mg SQ DAILY [facility] Last Admin: 02/08/24 10:43 Dose: 30 mg Famotidine (Famotidine 20 Mg Tab) 20 mg PO DAILY [facility] Last Admin: 02/08/24 10:42 Dose: 20 mg Labetalol HCl (Labetalol 100 Mg Tab) 50 mg PO BID [facility] Last Admin: 02/08/24 10:40 Dose: 50 mg Lactobacillus Acidophilus (Lactobacillus Acidophilus/Pect 1 Each Capsule) 1 each PO DAILY [facility] Last Admin: 02/08/24 10:43 Dose: 1 each Naloxone HCl (Naloxone 0.4 Mg/Ml 1 Ml Vial) 0.2 mg IV Q2M PRN PRN Reason: Opioid Reversal Trospium (Trospium Chloride 20 Mg Tablet) 20 mg PO BID [facility] Last Admin: 02/08/24 10:41 Dose: 20 mg Social history: Lives at [facility]. Former smoker. Physical examination: VITAL SIGNS: 98.2, 78, 16, 123/82, 99% room air GENERAL: Laying in bed, comfortable EYES: Absent right eye. Blind HEENT: External appearance of nose and ears normal, oral cavity grossly normal. NECK: JVD not raised; masses not palpable. HEART: First and second heart sounds are normal; no edema. LUNGS: Respiratory rate normal; decreased breath sound. ABDOMEN: Soft, mild tenderness no guarding rigidity r, liver spleen not palpable, no masses palpable. PSYCH: Patient able to answer simple questions. But forgetful l. MUSCULOSKELETAL:No Clubbing/cyanosis;muscles-grossly intact. OA multiple joints NEUROLOGICAL: Cranial nerves grossly intact; no facial asymmetry, power and sensation grossly intact. INVESTIGATIONS, reviewed in the clinical context: February 07: Potassium 4.3 bicarb 23 BUN 51 creatinine 1.23 February 06: White count 5.2 hemoglobin 9.7 platelets 251 potassium 4.8 BUN 81 creatinine 3.2 February 05: White count 5.9 hemoglobin 10.3 sodium 141 potassium 5.9 BUN 96 creatinine 4.46 bicarb 16 EKG tracing personally reviewed by me-normal sinus rhythm Chest x-ray film personally reviewed by me-hyperinflation. Cardiomegaly X-ray abdomen: Large amount of stool throughout the colon Renal ultrasound: Unremarkable UA: Positive for nitrate leukoesterase Previous labs: Creatinine 0.9 on October 09, 2023 Assessment plan: -Acute kidney injury. Possibly ATN: Improving Hold Cozaar. Aldactone. IV fluids. Renal ultrasound unremarkable. 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 -Troponinemia in the setting of acute kidney injury. Patient has no cardiac symptoms. -Hyperkalemia secondary to acute kidney injury: Better Received Lokelma - Blind Right eye enucleated -GERD Pepcid -Essential hypertension Hold Cozaar. Increase labetalol 100 mg twice daily -Primary osteoarthritis Pain medication as needed -Hyperlipidemia Hold Zocor because of weakness -Full code - Discussed with patient. Increase labetalol. Stop bicarbonate drip. Repeat labs. Hopefully home tomorrow. Past Medical History Past Medical History: Blood Disorder, Hyperlipidemia, Hypertension, Myocardial Infarction ([place]) Additional Past Medical History / Comment(s): blind, spacer rt eye, legally blind left eye, anemia Last Myocardial Infarction Date:: ? History of Any Multi-Drug Resistant Organisms: C-DIFF Date of last positivie culture/infection: 2006 MDRO Source:: cdiff Past Surgical History: Appendectomy, Back Surgery, Heart Catheterization, Hysterectomy, Orthopedic Surgery Additional Past Surgical History / Comment(s): cystoscopy 08/2023, l4-5, l5-s1 laminectomy Past Anesthesia/Blood Transfusion Reactions: No Reported Reaction Past Psychological History: No Psychological Hx Reported Smoking Status: Former smoker Past Alcohol Use History: None Reported Past Drug Use History: None Reported
[2024-02-08] MEDS: SODIUM CHLORIDE 0.45% 1,000 ML IV SCH (17:13)
[2024-02-08] MEDS: LABETALOL 100 MG TAB PO SCH (20:08)
[2024-02-09 06:46] LABS: African American GFR (CKD) 50 (>60 ml/min/1.73 sqM); Anion Gap 4 mmol/L; Blood Urea Nitrogen 37 mg/dL (7-17); Carbon Dioxide 25 mmol/L (22-30); Chloride 106 mmol/L (98-107); Glucose 77 mg/dL (74-99); Non-African American GFR(CKD) 43 (>60 ml/min/1.73 sqM); Potassium 4.6 mmol/L (3.5-5.1); Sodium 135 mmol/L (137-145)
[2024-02-09] MEDS: ONDANSETRON 4 MG TAB PO PRN (08:27)
--- NOTE | 2024-02-09 12:26 | P.PN ---
Subjective patient is seen for follow-up for acute kidney injury. Currently maintained on IV fluids. renal function has improved with serum creatinine down to 1.2. no significant complaints today.. Objective - Vital Signs Vital signs: Vital Signs Temp 97.6 F 02/09/24 08:00 Pulse 72 02/09/24 08:00 Resp 16 02/09/24 08:00 BP 140/97 02/09/24 08:00 Pulse Ox 98 02/09/24 08:00 FiO2 Intake & Output 02/08/24 02/09/24 02/09/24 18:59 06:59 18:59 Intake Total 240 240 Output Total 400 Balance -160 240 Weight 42.3 kg Intake: Oral 240 240 Output: Urine 400 Other: Voiding Method Bedside Commode Incontinent Incontinent Incontinent External Catheter External Catheter # Voids 2 1 - Exam patient is awake, comfortable, no acute distress. 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 - Labs CBC & Chem 7: 02/07/24 06:52 02/09/24 05:34 Labs: Abnormal Lab Results - Last 24 Hours (Table) 02/07/24 02/08/24 02/09/24 Range/Units 06:52 12:15 05:34 Sodium 135 L (137-145) mmol/L Chloride 109 H (98-107) mmol/L BUN 51 H 37 H (7-17) mg/dL Creatinine 1.23 H 1.20 H (0.52-1.04) mg/dL Vit D 1,25-Dihydroxy 16 L (20 - 79) pg/mL Assessment and Plan Assessment: 1. Acute kidney injury, ATN. Renal function is improving. UA shows no protein or blood, 1 hyaline cast noted. Ultrasound shows no evidence of obstructive uropathy. 4 mm echogenic area noted in the posterior aspect of the bladder. 2. Non-gap Metabolic acidosis associated with acute kidney injury, improved 3. Hyperkalemia associated with acute kidney injury metabolic acidosis, angiotensin receptor blockers as well as Aldactone prior to admission. No active GI bleeding noted at this time. Blood sugars have not been elevated. 4. Mild hypercalcemia secondary to calcium supplements associated with volume contraction, improved 5. Hypertension Plan: change IV fluids to Ringer lactate secondary to recent metabolic acidosis Avoid nephrotoxic agents. Continue to hold losartan and Aldactone. Repeat labs in a.m. continue off of calcium supplements.
[2024-02-09] MEDS: LACTATED RINGERS 1,000 ML IV SCH (12:43)
[2024-02-09] MEDS: NYSTATIN 100,000 UNIT/GM POWD 15 GM TOPICAL SCH (12:43)
--- NOTE | 2024-02-09 18:20 | P.PN ---
Progress Note - Text Progress Note Date: 02/09/24 Chief Complaint: Increased weakness This is a 78-year-old patient who lives at a assisted living [facility], [place]. As per the ER patient normally able to ambulate on her own. Over the last 1 week patient been having increased weakness and not able to ambulate. Decreased appetite. No falls reported. No fever no chills. Patient herself not a good historian. Normally 1 or 2 bowel movement every week. Patient is blind cannot see. Has slight abdominal discomfort. No nausea vomiting. Denies any urinary symptoms. February 07: Admitted with acute kidney injury. Aldactone and Cozaar held. Oral intake better. Creatinine coming down. Bicarbonate improved. Will stop bicarbonate drip. With physical therapy patient walked about 20 feet. February 08: Creatinine seems to leveled off at 1.2. Bicarbonate has improved to 25. Oral intake good. Being followed by nephrology. Active Medications Acetaminophen (Acetaminophen Tab 500 Mg Tab) 1,000 mg PO TID [facility] Last Admin: 02/09/24 16:16 Dose: 1,000 mg Hydrocodone Bitart/Acetaminophen (Hydrocodone/Apap 10-325mg 1 Each Tab) 1 each PO TID [facility] Last Admin: 02/09/24 16:15 Dose: 1 each Atorvastatin Calcium (Atorvastatin 20 Mg Tab) 20 mg PO HS [facility] Last Admin: 02/08/24 20:08 Dose: 20 mg Cyanocobalamin (Cyanocobalamin 500 Mcg Tab) 1,000 mcg PO DAILY [facility] Last Admin: 02/09/24 09:57 Dose: 1,000 mcg Enoxaparin Sodium (Enoxaparin 30 Mg/0.3 Ml Syringe) 30 mg SQ DAILY [facility] Last Admin: 02/09/24 09:57 Dose: 30 mg Famotidine (Famotidine 20 Mg Tab) 20 mg PO DAILY [facility] Last Admin: 02/09/24 09:57 Dose: 20 mg Lactated Ringer's (Lactated Ringers) 1,000 mls @ 75 mls/hr IV .[id number] [facility] Last Admin: 02/09/24 12:43 Dose: 75 mls/hr Labetalol HCl (Labetalol 100 Mg Tab) 100 mg PO BID [facility] Last Admin: 02/09/24 09:57 Dose: 100 mg Lactobacillus Acidophilus (Lactobacillus Acidophilus/Pect 1 Each Capsule) 1 each PO DAILY [facility] Last Admin: 02/09/24 09:57 Dose: 1 each Naloxone HCl (Naloxone 0.4 Mg/Ml 1 Ml Vial) 0.2 mg IV Q2M PRN PRN Reason: Opioid Reversal Nystatin (Nystatin 100,000 Unit/Gm Powd 15 Gm) 1 applic TOPICAL BID [facility]; Protocol Last Admin: 02/09/24 12:43 Dose: 1 applic Ondansetron HCl (Ondansetron 4 Mg Tab) 4 mg PO Q8HR PRN PRN Reason: Nausea And Vomiting Last Admin: 02/09/24 08:27 Dose: 4 mg Trospium (Trospium Chloride 20 Mg Tablet) 20 mg PO BID [facility] Last Admin: 02/09/24 09:57 Dose: 20 mg Social history: Lives at [facility]. Former smoker. Physical examination: VITAL SIGNS: 97.3, 77, 16, 123/93, 98% room air GENERAL: Laying in bed, comfortable EYES: Absent right eye. Blind HEENT: External appearance of nose and ears normal, oral cavity grossly normal. NECK: JVD not raised; masses not palpable. HEART: First and second heart sounds are normal; no edema. LUNGS: Respiratory rate normal; decreased breath sound. ABDOMEN: Soft, mild tenderness no guarding rigidity r, liver spleen not palpable, no masses palpable. PSYCH: Patient able to answer simple questions. But forgetful l. MUSCULOSKELETAL:No Clubbing/cyanosis;muscles-grossly intact. OA multiple joints NEUROLOGICAL: Blind. INVESTIGATIONS, reviewed in the clinical context: February 08: Potassium 4.6 BUN 37 creatinine 1.20 February 07: Potassium 4.3 bicarb 23 BUN 51 creatinine 1.23 February 06: White count 5.2 hemoglobin 9.7 platelets 251 potassium 4.8 BUN 81 creatinine 3.2 February 05: White count 5.9 hemoglobin 10.3 sodium 141 potassium 5.9 BUN 96 creatinine 4.46 bicarb 16 EKG tracing personally reviewed by me-normal sinus rhythm Chest x-ray film personally reviewed by me-hyperinflation. Cardiomegaly X-ray abdomen: Large amount of stool throughout the colon Renal ultrasound: Unremarkable UA: Positive for nitrate leukoesterase Previous labs: Creatinine 0.9 on October 09, 2023 Assessment plan: -Acute kidney injury. Possibly ATN: Improving Hold Cozaar. Aldactone. IV fluids. Renal ultrasound unremarkable. 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 -Troponinemia in the setting of acute kidney injury. Patient has no cardiac symptoms. -Hyperkalemia secondary to acute kidney injury: Better Received Lokelma - Blind Right eye enucleated -GERD Pepcid -Essential hypertension Hold Cozaar. Increase labetalol 100 mg twice daily -Primary osteoarthritis Pain medication as needed -Hyperlipidemia Hold Zocor because of weakness -Full code - Continue IV fluids. Blood pressure better. Follow-up with nephrology Past Medical History Past Medical History: Blood Disorder, Hyperlipidemia, Hypertension, Myocardial Infarction ([place]) Additional Past Medical History / Comment(s): blind, spacer rt eye, legally blind left eye, anemia Last Myocardial Infarction Date:: ? History of Any Multi-Drug Resistant Organisms: C-DIFF Date of last positivie culture/infection: 2006 MDRO Source:: cdiff Past Surgical History: Appendectomy, Back Surgery, Heart Catheterization, Hysterectomy, Orthopedic Surgery Additional Past Surgical History / Comment(s): cystoscopy 08/2023, l4-5, l5-s1 laminectomy Past Anesthesia/Blood Transfusion Reactions: No Reported Reaction Past Psychological History: No Psychological Hx Reported Smoking Status: Former smoker Past Alcohol Use History: None Reported Past Drug Use History: None Reported
[2024-02-10 07:47] VITALS: TEMP 97.8
[2024-02-10 10:25] LABS: African American GFR (CKD) 63 (>60 ml/min/1.73 sqM); Anion Gap 7 mmol/L; Blood Urea Nitrogen 29 mg/dL (7-17); Carbon Dioxide 19 mmol/L (22-30); Chloride 110 mmol/L (98-107); Glucose 72 mg/dL (74-99); Non-African American GFR(CKD) 55 (>60 ml/min/1.73 sqM); Sodium 136 mmol/L (137-145)
[2024-02-10 10:30] LABS: Potassium 4.7 mmol/L (3.5-5.1)
[2024-02-10 11:25] VITALS: BP 135/80; PULSE 72; RESP 18
--- NOTE | 2024-02-10 12:19 | P.PN ---
Subjective Patient is seen for follow-up for acute kidney injury. Currently maintained on IV fluids. renal function has improved with serum creatinine down to 0.9 no significant complaints today.. Objective - Vital Signs Vital signs: Vital Signs Temp 97.8 F 02/10/24 07:46 Pulse 72 02/10/24 11:25 Resp 18 02/10/24 11:25 BP 135/80 02/10/24 11:25 Pulse Ox 95 02/10/24 11:25 FiO2 Intake & Output 02/09/24 02/10/24 02/10/24 18:59 06:59 18:59 Intake Total 960 500 Balance 960 500 Weight 42.6 kg Intake: Oral 960 500 Other: Voiding Method Incontinent Incontinent Incontinent External Catheter External Catheter # Voids 1 1 - Exam patient is awake, comfortable, no acute distress. Examination of the heart S1 and S2 Examination of the lungs bilateral breath sounds are heard Abdomen is soft nontender Examination lower extremity shows no significant edema [employer] exam shows patient is moving all 4 extremities. - Labs CBC & Chem 7: 02/07/24 06:52 02/10/24 07:04 Labs: Abnormal Lab Results - Last 24 Hours (Table) 02/10/24 Range/Units 07:04 Sodium 136 L (137-145) mmol/L Chloride 110 H (98-107) mmol/L Carbon Dioxide 19 L (22-30) mmol/L BUN 29 H (7-17) mg/dL Glucose 72 L (74-99) mg/dL Assessment and Plan Assessment: 1. Acute kidney injury, ATN. Renal function is improving. UA shows no protein or blood, 1 hyaline cast noted. Ultrasound shows no evidence of obstructive uropathy. 4 mm echogenic area noted in the posterior aspect of the bladder. 2. Non-gap Metabolic acidosis associated with acute kidney injury, improved 3. Hyperkalemia associated with acute kidney injury metabolic acidosis, angiotensin receptor blockers as well as Aldactone prior to admission. No active GI bleeding noted at this time. Blood sugars have not been elevated. 4. Mild hypercalcemia secondary to calcium supplements associated with volume contraction, improved 5. Hypertension Plan: continue lactated Ringer's until discharge Avoid nephrotoxic agents. Repeat labs in a.m. continue off of calcium supplements.
--- NOTE | 2024-02-10 21:29 | P.DS ---
Providers Date of admission: 02/06/24 18:53 Expected date of discharge: 02/10/24 Attending physician: Jed Loera Consults: 02/06/24 18:52 Consult Physician Urgent Consulting Provider: Minerva Fajardo Consult Reason/Comments: jose antonio Do you want consulting provider notified?: Yes Primary care physician: [facility] Hospital Course: Chief Complaint: Increased weakness This is a 78-year-old patient who lives at a assisted living [facility]. As per the ER patient normally able to ambulate on her own. Over the last 1 week patient been having increased weakness and not able to ambulate. Decreased appetite. No falls reported. No fever no chills. Patient herself not a good historian. Normally 1 or 2 bowel movement every week. Patient is blind cannot see. Has slight abdominal discomfort. No nausea vomiting. Denies any urinary symptoms. February 07: Admitted with acute kidney injury. Aldactone and Cozaar held. Oral intake better. Creatinine coming down. Bicarbonate improved. Will stop bicarbonate drip. With physical therapy patient walked about 20 feet. February 08: Creatinine seems to leveled off at 1.2. Bicarbonate has improved to 25. Oral intake good. Being followed by nephrology. February 09: Resting in bed. Comfortable. Eating well. Creatinine down to 0.99. Spoke to the patient. Will discharge to the [facility]. Social history: Lives at [facility]. Former smoker. Physical examination: VITAL SIGNS: 97.8, 72, 18, 135 x 80, 95% room air GENERAL: Laying in bed, comfortable EYES: Absent right eye. Blind HEENT: External appearance of nose and ears normal, oral cavity grossly normal. NECK: JVD not raised; masses not palpable. HEART: First and second heart sounds are normal; no edema. LUNGS: Respiratory rate normal; decreased breath sound. ABDOMEN: Soft, mild tenderness no guarding rigidity r, liver spleen not palpable, no masses palpable. PSYCH: Patient able to answer simple questions. But forgetful l. MUSCULOSKELETAL:No Clubbing/cyanosis;muscles-grossly intact. OA multiple joints NEUROLOGICAL: Blind. INVESTIGATIONS, reviewed in the clinical context: February 09: Sodium 136 potassium 4.7 BUN 29 creatinine 0.99 February 06: White count 5.2 hemoglobin 9.7 platelets 251 potassium 4.8 BUN 81 creatinine 3.2 February 05: White count 5.9 hemoglobin 10.3 sodium 141 potassium 5.9 BUN 96 creatinine 4.46 bicarb 16 EKG tracing personally reviewed by me-normal sinus rhythm Chest x-ray film personally reviewed by me-hyperinflation. Cardiomegaly X-ray abdomen: Large amount of stool throughout the colon Renal ultrasound: Unremarkable UA: Positive for nitrate leukoesterase Previous labs: Creatinine 0.9 on October 09, 2023 Assessment plan: -Acute kidney injury. Possibly ATN: Resolved Discontinued Cozaar. . Renal ultrasound unremarkable. 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 -Troponinemia in the setting of acute kidney injury. Patient has no cardiac symptoms. -Hyperkalemia secondary to acute kidney injury: Better Received Lokelma - Blind Right eye enucleated -GERD Pepcid -Essential hypertension Hold Cozaar. Increase labetalol 100 mg twice daily -Primary osteoarthritis Pain medication as needed -Hyperlipidemia Zocor -Full code - Disposition: AFC Past Medical History Past Medical History: Blood Disorder, Hyperlipidemia, Hypertension, Myocardial Infarction ([place]) Additional Past Medical History / Comment(s): blind, spacer rt eye, legally blind left eye, anemia Last Myocardial Infarction Date:: ? History of Any Multi-Drug Resistant Organisms: C-DIFF Date of last positivie culture/infection: 2006 MDRO Source:: cdiff Past Surgical History: Appendectomy, Back Surgery, Heart Catheterization, Hysterectomy, Orthopedic Surgery Additional Past Surgical History / Comment(s): cystoscopy 08/2023, l4-5, l5-s1 laminectomy Past Anesthesia/Blood Transfusion Reactions: No Reported Reaction Past Psychological History: No Psychological Hx Reported Smoking Status: Former smoker Past Alcohol Use History: None Reported Past Drug Use History: None Reported Plan - Discharge Summary Discharge Rx Participant: Yes New Discharge Prescriptions: Continue Ferrous Gluconate 324 mg PO Q2D Famotidine [Pepcid] 20 mg PO BID Lactobacillus Acidophilus [Acidophilus] 1 tab PO DAILY Cyanocobalamin (Vitamin B-12) [Vitamin B-12] 1,000 mcg PO DAILY Calcium Carbonate [Calcium] 1,200 mg PO DAILY Solifenacin Succinate [Vesicare] 10 mg PO DAILY Alendronate Sodium [Fosamax] 70 mg PO Q7D HYDROcodone/APAP 10-325MG [Alberta 10-325] 1 tab PO TID Spironolactone [Aldactone] 25 mg PO DAILY Ondansetron Odt [Zofran ODT] 8 mg PO BID PRN PRN Reason: Nausea Labetalol [Trandate] 100 mg PO BID Acetaminophen Tab [Tylenol] 1,000 mg PO TID Simvastatin [Zocor] 40 mg PO HS diphenhydrAMINE HCL [Benadryl] 25 mg PO HS PRN PRN Reason: allergies/sleep tiZANidine [Zanaflex] 4 mg PO TID PRN PRN Reason: Muscle Spasm Discontinued Losartan [Cozaar] 50 mg PO HS hydrOXYzine HCL [Atarax] 25 mg PO DAILY No Action Triple Fowler 1 tab PO BID Ubidecarenone [Coenzyme Q10] 200 mg PO DAILY Garlic 1,000 mg PO DAILY Cranberry 42,000 Mg 42,000 mg PO DAILY Discharge Medication List Acetaminophen Tab [Tylenol] 1,000 mg PO TID 10/08/23 [History] Alendronate Sodium [Fosamax] 70 mg PO Q7D 10/08/23 [History] Calcium Carbonate [Calcium] 1,200 mg PO DAILY 10/08/23 [History] Cyanocobalamin (Vitamin B-12) [Vitamin B-12] 1,000 mcg PO DAILY 10/08/23 [History] Famotidine [Pepcid] 20 mg PO BID 10/08/23 [History] Ferrous Gluconate 324 mg PO Q2D 10/08/23 [History] Garlic 1,000 mg PO DAILY 10/08/23 [History] Labetalol [Trandate] 100 mg PO BID 10/08/23 [History] Lactobacillus Acidophilus [Acidophilus] 1 tab PO DAILY 10/08/23 [History] Simvastatin [Zocor] 40 mg PO HS 10/08/23 [History] Solifenacin Succinate [Vesicare] 10 mg PO DAILY 10/08/23 [History] Triple Fowler 1 tab PO BID 10/08/23 [History] Ubidecarenone [Coenzyme Q10] 200 mg PO DAILY 10/08/23 [History] diphenhydrAMINE HCL [Benadryl] 25 mg PO HS PRN 10/08/23 [History] HYDROcodone/APAP 10-325MG [Alberta 10-325] 1 tab PO TID 02/06/24 [History] Cranberry 42,000 Mg 42,000 mg PO DAILY 02/07/24 [History] Ondansetron Odt [Zofran ODT] 8 mg PO BID PRN 02/07/24 [History] Spironolactone [Aldactone] 25 mg PO DAILY 02/07/24 [History] tiZANidine [Zanaflex] 4 mg PO TID PRN 02/07/24 [History] Follow up Appointment(s)/Referral(s): Sancho Contreras MD [Primary Care Provider] - 1-2 days (Please call Sunday to schedule follow up appoitment) Patient Instructions/Handouts: Acute Kidney Injury (IP) Discharge Disposition: HOME SELF-CARE
== END 2024-02-10 15:28 | disposition home or self-care (01) | DRG 683 ==
LOC: EC 14:23 → 3SCARD 18:53
PROVIDERS: ADMIT Hospitalist; ATTEND Hospitalist
DX: N17.0 Acute kidney failure with tubular necrosis (principal); E87.20 Acidosis, unspecified; E78.00 Pure hypercholesterolemia, unspecified; E83.52 Hypercalcemia; E87.5 Hyperkalemia; H54.8 Legal blindness, as defined in USA; I10 Essential (primary) hypertension; I25.10 Atherosclerotic heart disease of native coronary artery without angina pectoris; K21.9 Gastro-esophageal reflux disease without esophagitis; G30.1 Alzheimer's disease with late onset; F06.70 Mild neurocognitive disorder due to known physiological condition without behavioral disturbance; R62.7 Adult failure to thrive; I25.2 Old myocardial infarction; Z79.83 Long term (current) use of bisphosphonates; Z79.899 Other long term (current) drug therapy; Z87.891 Personal history of nicotine dependence; Z88.5 Allergy status to narcotic agent; Z88.8 Allergy status to other drugs, medicaments and biological substances; Z11.52 Encounter for screening for COVID-19
CPT/HCPCS: 36415; 71046; 72170; 76770; 80048; 80053; 81001; 82306; 82550; 82652; 83605; 83735; 83880; 83970; 84484; 85025; 85610; 86334; 86335; 87636; 93005; 96360; 96361; 99285

== ENCOUNTER 2024-03-26 16:35 | Inpatient (IN) | payer MEDICARE ==
--- NOTE | 2024-03-26 17:00 | ED ---
Chest Pain HPI - General Source: patient, RN notes reviewed Mode of arrival: ambulatory Limitations: no limitations <Johnna Beltran - Last Filed: 03/26/24 16:59> <Pancho Jay - Last Filed: 03/26/24 19:37> - General Chief Complaint: Chest Pain Stated Complaint: chest pain, SOB Time Seen by Provider: 03/26/24 16:59 - History of Present Illness Initial Comments: Quick note: 78-year-old female presented to ER with a chief complaint of chest discomfort. Patient states has been ongoing for the past 2 to 3 days. She describes it as a tightness/achy pain. History of TX. She is also describing shortness of breath and nausea. (Johnna Beltran) This is a 78-year-old female who presents to the emergency department complaining of chest pain for last couple of days. Patient states there is no radiation of the pain. Patient states sometimes there is some shortness of breath with the pain patient states the pain is intermittent. Patient states she has high blood pressure and high cholesterol. Patient denies any back pain. Patient denies any abdominal pain. Patient denies any nausea vomiting or diarrhea. Patient denies any diaphoretic episode. Patient denies any recent fever chills or cough. (Pancho Jay) - Related Data Home Medications Medication Instructions Recorded Confirmed Acetaminophen Tab [Tylenol] 1,000 mg PO TID 10/08/23 02/06/24 Alendronate Sodium [Fosamax] 70 mg PO Q7D 10/08/23 02/06/24 Calcium Carbonate [Calcium] 1,200 mg PO DAILY 10/08/23 02/06/24 Cyanocobalamin (Vitamin B-12) 1,000 mcg PO DAILY 10/08/23 02/06/24 [Vitamin B-12] Famotidine [Pepcid] 20 mg PO BID 10/08/23 02/06/24 Ferrous Gluconate 324 mg PO Q2D 10/08/23 02/06/24 Garlic 1,000 mg PO DAILY 10/08/23 02/06/24 Labetalol [Trandate] 100 mg PO BID 10/08/23 02/06/24 Lactobacillus Acidophilus 1 tab PO DAILY 10/08/23 02/06/24 [Acidophilus] Simvastatin [Zocor] 40 mg PO HS 10/08/23 02/06/24 Solifenacin Succinate [Vesicare] 10 mg PO DAILY 10/08/23 02/06/24 Triple [place] 1 tab PO BID 10/08/23 02/06/24 Ubidecarenone [Coenzyme Q10] 200 mg PO DAILY 10/08/23 02/06/24 diphenhydrAMINE HCL [Benadryl] 25 mg PO HS PRN 10/08/23 02/06/24 HYDROcodone/APAP 10-325MG [[place] 1 tab PO TID 02/06/24 02/06/24 10-325] Cranberry 42,000 Mg 42,000 mg PO DAILY 02/07/24 02/07/24 Ondansetron Odt [Zofran ODT] 8 mg PO BID PRN 02/07/24 02/07/24 Spironolactone [Aldactone] 25 mg PO DAILY 02/07/24 02/07/24 tiZANidine [Zanaflex] 4 mg PO TID PRN 02/07/24 02/07/24 Allergies Allergy/AdvReac Type Severity Reaction Status Date / Time adhesive tape Allergy Unknown Verified 03/26/24 16:59 amlodipine Allergy Swelling Verified 03/26/24 16:59 codeine Allergy Rash/Hives Verified 03/26/24 16:59 duloxetine [From Cymbalta] Allergy Unknown Verified 03/26/24 16:59 lisinopril Allergy Unknown Verified 03/26/24 16:59 pregabalin [From Lyrica] Allergy Unknown Verified 03/26/24 16:59 venlafaxine [From Effexor] Allergy Rash/Hives Verified 03/26/24 16:59 morphine [From MS Contin] AdvReac Hallucinati Verified 03/26/24 16:59 ons Review of Systems ROS Other: All systems not noted in ROS Statement are negative. <Johnna Beltran - Last Filed: 03/26/24 16:59> ROS Other: All systems not noted in ROS Statement are negative. <Pancho Jay - Last Filed: 03/26/24 19:37> ROS Statement: Those systems with pertinent positive or pertinent negative responses have been documented in the HPI. Past Medical History Past Medical History: Blood Disorder, Hyperlipidemia, Hypertension, Myocardial Infarction ([place]) Additional Past Medical History / Comment(s): blind, spacer rt eye, legally blind left eye, anemia Last Myocardial Infarction Date:: ? History of Any Multi-Drug Resistant Organisms: C-DIFF Date of last positivie culture/infection: 2006 MDRO Source:: cdiff Past Surgical History: Appendectomy, Back Surgery, Heart Catheterization, Hysterectomy, Orthopedic Surgery Additional Past Surgical History / Comment(s): cystoscopy 08/2023, l4-5, l5-s1 laminectomy Past Anesthesia/Blood Transfusion Reactions: No Reported Reaction Past Psychological History: No Psychological Hx Reported Smoking Status: Former smoker Past Alcohol Use History: None Reported Past Drug Use History: None Reported - Past Family History Father Additional Family Medical History / Comment(s): coronary thrombosis <Johnna Beltran - Last Filed: 03/26/24 16:59> General Exam Limitations: no limitations <Johnna Beltran - Last Filed: 03/26/24 16:59> <Pancho Jay - Last Filed: 03/26/24 19:37> - General Exam Comments Initial Comments: Visual Physical Exam Vital signs reviewed General: Well-appearing, nontoxic, no acute distress. Head: Normocephalic, atraumatic Eyes: PERRLA, EOMI ENT: Airway patent Chest: Nonlabored breathing Skin: No visual rash, normal skin tone Neuro: Alert and oriented 3 Musculoskeletal: No gross abnormalities (Johnna Beltran) GENERAL: Patient is well-developed and well-nourished. Patient is nontoxic and well- hydrated and is in no acute distress. ENT: Neck is soft and supple. No significant lymphadenopathy is noted. Oropharynx is clear. Moist mucous membranes. Neck has full range of motion without eliciting any pain. There is no thyroid enlargement and no masses were felt. EYES: Patient is blind bilaterally. Patient's right eye has been removed. Patient has left eye but she cannot see out of it and pupil is maximally dilated PULMONARY: Unlabored respirations. Good breath sounds bilaterally. No audible rales rhonchi or wheezing was noted. CARDIOVASCULAR: There is a regular rate and rhythm without any murmurs gallops or rubs. ABDOMEN: Soft and nontender with normal bowel sounds. SKIN: Skin is clear with no lesions or rashes and otherwise unremarkable. NEUROLOGIC: Patient is alert and oriented x3. Cranial nerves II through XII are grossly intact. Motor and sensory are also intact. Normal speech, volume and content. Symmetrical smile. MUSCULOSKELETAL: Normal extremities with adequate strength and full range of motion. No lower extremity swelling or edema. No calf tenderness. LYMPHATICS: No significant lymphadenopathy is noted PSYCHIATRIC: Normal psychiatric evaluation. (Pancho Jay) Course Vital Signs 03/26/24 03/26/24 03/26/24 16:56 17:30 18:00 Temperature 98.3 F Pulse Rate 76 72 Pulse Rate [ 76 Correctional Corporal ] Respiratory 20 18 Rate Blood Pressure 105/79 125/76 O2 Sat by Pulse 98 97 Oximetry Chest Pain MDM <Johnna Beltran - Last Filed: 03/26/24 16:59> <Pancho Jay - Last Filed: 03/26/24 19:37> - [facility] I performed the quick note portion of this chart. Electronically signed by Johnna Beltran PA-C (Johnna Beltran) EKG is interpreted by myself. EKG shows a sinus rhythm at 68 bpm MD 215 QRS is 92 QT interval is 408 QTc is 425. Patient's EKG shows T waves abnormalities in V5 and V6. No ST segment elevation Was pt. sent in by a medical professional or institution (MARIE Moreno, FILM CUTTER, urgent care, hospital, or long term...) When possible be specific @ -No Did you speak to anyone other than the patient for history (EMS, parent, family, police, friend...)? What history was obtained from this source @ -No Did you review nursing and triage notes (agree or disagree)? Why? @ -I reviewed and agree with nursing and triage notes Were old charts reviewed (outside hosp., previous admission, EMS record, old EKG, old radiological studies, urgent care reports/EKG's, long term records)? Report findings @ -No old charts were reviewed Differential Diagnosis? @ -Differential Chest Pain: Stable Angina, Unstable Angina, STEMI, NSTEMI Aortic Dissection, Pneumothorax, Musculoskeletal, Esophageal Spasm GERD, Cholecystitis, Pancreatitis, Zoster, this is not meant to be an all-inclusive list. EKG interpreted by me (3pts min.). @ -As above X-rays interpreted by me (1pt min.). @ -Chest x-ray shows no acute abnormality CT interpreted by me (1pt min.). @ -None done U/S interpreted by me (1pt. min.). @ -None done What testing was considered but not performed or refused? (CT, X-rays, U/S, labs)? Why? @ -None What meds were considered but not given or refused? Why? @ -None Did you discuss the management of the patient with other professionals (professionals i.e. DrTerrance, PA, FILM CUTTER, lab, RT, psych nurse, social work professor, health analyst, teacher, sustainability officer, bilingual patient support caseworker)? Give summary @ -Spoke with Dr. Loera he agreed the patient need to be admitted admitted the patient wrote admitting orders Was smoking cessation discussed for >3mins.? @ -No Was critical care preformed (if so, how long)? @ -No Were there social determinants of health that impacted care today? How? (Homelessness, low income, unemployed, alcoholism, drug addiction, transportation, low edu. Level, literacy, decrease access to med. care, skilled nursing, rehab)? @ -No Was there de-escalation of care discussed even if they declined (Discuss DNR or withdrawal of care, Hospice)? DNR status @ -No What co-morbidities impacted this encounter? (DM, HTN, Smoking, COPD, CAD, Cancer, CVA, ARF, Chemo, Hep., AIDS, mental health diagnosis, sleep apnea, morbid obesity)? @ -None Was patient admitted / discharged? Hospital course, mention meds given and route, prescriptions, significant lab abnormalities, going to OR and other pertinent info. @ -I went back into the room to discuss results with the patient patient stated she was having chest pain on and off since she has been here. Undiagnosed new problem with uncertain prognosis? @ -No Drug Therapy requiring intensive monitoring for toxicity (Heparin, Nitro, Insulin, Cardizem)? @ -No Were any procedures done? @ -No Diagnosis/symptom? @ -Chest pain Acute, or Chronic, or Acute on Chronic? @ -Acute Uncomplicated (without systemic symptoms) or Complicated (systemic symptoms)? @ -Complicated Side effects of treatment? @ -No Exacerbation, Progression, or Severe Exacerbation? @ -No Poses a threat to life or bodily function? How? (Chest pain, [place], [place], pneumonia, PE, COPD, DKA, ARF, appy, cholecystitis, CVA, Diverticulitis, Homicidal, Suicidal, threat to staff... and all critical care pts) @ -Yes this could lead to an TX and end organ dysfunction (Pancho Jay) Disposition <Johnna Beltran - Last Filed: 03/26/24 16:59> Time of Disposition: 19:37 <Pancho Jay - Last Filed: 03/26/24 19:37> Clinical Impression: Chest pain Disposition: ADMITTED IP TO THIS HOSP Referrals: Sancho Contreras MD [Primary Care Provider] - 1-2 days
[2024-03-26 18:28] LABS: Basophils % (A) 1 %; Eosinophils # (A) 0.2 k/uL (0-0.7); Eosinophils % (A) 3 %; HCT 35.8 % (34.0-46.0); HGB 11.4 gm/dL (11.4-16.0); Hypochromasia Slight; Lymphocytes # (A) 0.9 k/uL (1.0-4.8); Lymphocytes % (A) 14 %; MCH 30.4 pg (25.0-35.0); MCHC 31.9 g/dL (31.0-37.0); MCV 95.1 fL (80.0-100.0); Mean Platelet Volume 7.6; Monocytes # (A) 0.5 k/uL (0-1.0); Monocytes % (A) 7 %; Neutrophils # (A) 4.7 k/uL (1.3-7.7); Neutrophils % (A) 74 %; Platelet Count 309 k/uL (150-450); RBC 3.77 m/uL (3.80-5.40); RDW 15.2 % (11.5-15.5); WBC 6.3 k/uL (3.8-10.6)
[2024-03-26] MEDS: NITROGLYCERIN OINT 1 INCH/GM PACKET TOPICAL STA (18:28)
[2024-03-26 18:39] LABS: INR 0.9 (<1.2); Partial Thromboplastin Time 25.8 sec (22.0-30.0); Prothrombin Time 10.4 sec (10.0-12.5)
[2024-03-26 18:59] LABS: ALT 13 U/L (4-34); AST 27 U/L (14-36); African American GFR (CKD) 35 (>60 ml/min/1.73 sqM); Albumin 4.4 g/dL (3.5-5.0); Alkaline Phosphatase 49 U/L (38-126); Anion Gap 10 mmol/L; Blood Urea Nitrogen 46 mg/dL (7-17); Calcium 10.3 mg/dL (8.4-10.2); Carbon Dioxide 25 mmol/L (22-30); Chloride 106 mmol/L (98-107); Glucose 93 mg/dL (74-99); Magnesium 2.1 mg/dL (1.6-2.3); Non-African American GFR(CKD) 30 (>60 ml/min/1.73 sqM); Potassium 4.5 mmol/L (3.5-5.1); Sodium 141 mmol/L (137-145); Total Bilirubin 0.7 mg/dL (0.2-1.3); Total Protein 6.9 g/dL (6.3-8.2)
--- NOTE | 2024-03-26 19:10 | XR ---
EXAMINATION TYPE: XR chest 2V DATE OF EXAM: 03/26/2024 COMPARISON: 02/06/2024 INDICATION: Chest pain TECHNIQUE: Frontal and lateral views of the chest are obtained. FINDINGS: The heart size is mildly prominent. The pulmonary vasculature is normal. Posterior pleural effusion may be present. Lungs otherwise appear clear.. There is hyperinflation an d flattening the diaphragms compatible with COPD. IMPRESSION: 1. Cardiomegaly. 2. There may be a posterior pleural effusion on the lateral projection.
[2024-03-26] MEDS ORDERED: NITROGLYCERIN SL TABS 0.4 MG TAB SUBLINGUAL PRN (19:37)
[2024-03-26] MEDS: NITROGLYCERIN OINT 1 INCH/GM PACKET TOPICAL SCH (23:30)
[2024-03-27] MEDS ORDERED: HEPARIN SODIUM 1,000 UN/ML (10ML VL) IV PRN (08:38)
[2024-03-27 08:43] LABS: LDL Cholesterol,Calculated 91.1 mg/dL (0.0-131.0)
[2024-03-27] MEDS ORDERED: tiZANidine 4 MG TAB PO PRN (09:53)
[2024-03-27] MEDS ORDERED: NON FORMULARY DRUG (Alendronate Sodium [Fosamax] 70 MG Tablet) PO SCH (10:00)
[2024-03-27 10:02] LABS: Basophils % (A) 0 %; Eosinophils # (A) 0.2 k/uL (0-0.7); Eosinophils % (A) 2 %; HCT 33.9 % (34.0-46.0); HGB 11.1 gm/dL (11.4-16.0); Lymphocytes # (A) 1.1 k/uL (1.0-4.8); Lymphocytes % (A) 18 %; MCH 30.5 pg (25.0-35.0); MCHC 32.7 g/dL (31.0-37.0); MCV 93.5 fL (80.0-100.0); Mean Platelet Volume 9.8; Monocytes # (A) 0.4 k/uL (0-1.0); Monocytes % (A) 7 %; Neutrophils # (A) 4.2 k/uL (1.3-7.7); Neutrophils % (A) 70 %; Platelet Count 171 k/uL (150-450); RBC 3.63 m/uL (3.80-5.40); RDW 15.1 % (11.5-15.5)
[2024-03-27 10:03] LABS: INR 0.9 (<1.2); Prothrombin Time 10.5 sec (10.0-12.5)
[2024-03-27 10:24] LABS: Partial Thromboplastin Time 19.7 sec (22.0-30.0)
[2024-03-27] MEDS: ASPIRIN 325 MG TAB PO SCH (11:06)
[2024-03-27] MEDS: CALCIUM CARBONATE 500 MG CHEWABLE PO SCH (11:07)
[2024-03-27] MEDS: ACETAMINOPHEN TAB 500 MG TAB PO SCH (11:07)
[2024-03-27] MEDS: CYANOCOBALAMIN 500 MCG TAB PO SCH (11:08)
[2024-03-27] MEDS: FAMOTIDINE 20 MG TAB PO SCH (11:08)
[2024-03-27] MEDS: LACTOBACILLUS ACIDOPHILUS/PECT 1 EACH CAPSULE PO SCH (11:09)
[2024-03-27] MEDS: HYDROcodone/APAP 10-325MG 1 EACH TAB PO SCH (11:09)
[2024-03-27] MEDS: FERROUS SULFATE 325 MG TAB PO SCH (11:09)
[2024-03-27] MEDS: TROSPIUM CHLORIDE 20 MG TABLET PO SCH (11:10)
[2024-03-27] MEDS: HEPARIN SODIUM 1,000 UN/ML (10ML VL) IV ONE (11:11)
[2024-03-27] MEDS: LABETALOL 100 MG TAB PO SCH (11:11)
[2024-03-27] MEDS: HEPARIN SOD,PORK IN 0.45% NACL 25,000 UNIT in 0.45% NACL 1 250ML.BAG IV SCH (11:12)
--- NOTE | 2024-03-27 16:09 | P.HPIM ---
History of Present Illness H&P Date: 03/27/24 Chief Complaint: Chest pain This is a 78-year-old patient who lives at a assisted living[place]. PCP Dr. Contreras Patient presents to the ER with chest discomfort going on for 4 to 5 days. Somewhat constant. No radiation. Some shortness of breath. No precipitating or relieving factor. No fever no chills. No cough. Review of systems: GEN.: Tired EYES: Blind HEENT: None NECK: None RESPIRATORY: None CARDIOVASCULAR: As above GASTROINTESTINAL: None GENITOURINARY: None MUSCULOSKELETAL: Chronic neck pain from C6 surgery LYMPHATICS: None HEMATOLOGICAL: None PSYCHIATRY: Forgetful NEUROLOGICAL: Chronic numbness in tip of the fingers and the feet Social history: Lives at [facility]. Former smoker. Physical examination: VITAL SIGNS: Afebrile, 85, 20, 122 x 92, 98% room air GENERAL: Laying in bed, comfortable EYES: Absent right eye. Blind HEENT: External appearance of nose and ears normal, oral cavity grossly normal. NECK: JVD not raised; masses not palpable. HEART: First and second heart sounds are normal; no edema. LUNGS: Respiratory rate normal; decreased breath sound. ABDOMEN: Soft, mild tenderness no guarding rigidity r, liver spleen not palpable, no masses palpable. PSYCH: Patient able to answer simple questions. But forgetful l. MUSCULOSKELETAL:No Clubbing/cyanosis;muscles-grossly intact. OA multiple joints NEUROLOGICAL: Blind. INVESTIGATIONS, reviewed in the clinical context: March 27, 2024: White count 6 hemoglobin 11.1 platelets 171 Sodium 141 potassium 4.5 BUN 46 creatinine 1.61 EKG tracing personally reviewed by me-normal sinus rhythm. Rate 68, LVH. Some ST-T wave changes inferolateral leads Chest x-ray film personally reviewed by me-hyperinflation., Some cardiomegaly Troponin I 0.035, 0.043, 0.045 LDL 91.1 Previous labs: Creatinine 0.99 on February 10, 2024 Renal ultrasound January 2024: Unremarkable Assessment plan: -Acute kidney injury., Patient on Aldactone Renal ultrasound was unremarkable in January 2024 Hold Aldactone. IV fluids -Acute coronary syndrome, anterior chest wall pain. Patient is troponins that are leveled off in the setting of kidney injury. EKG changes are present. IV heparin. 2D echocardiogram. Telemetry. Cardiology consulted. Lopressor 12.5 twice daily -IV heparin monitoring Follow PTT -Mild to moderate cognitive impairment possible late onset Alzheimer's dementia. - Blind Right eye enucleated -GERD Pepcid -Primary osteoarthritis Pain medication as needed -Hyperlipidemia Zocor -Full code Discussed with patient Past Medical History Past Medical History: Blood Disorder, Hyperlipidemia, Hypertension, Myocardial Infarction ([place]) Additional Past Medical History / Comment(s): blind, spacer rt eye, legally blind left eye, anemia Last Myocardial Infarction Date:: ? History of Any Multi-Drug Resistant Organisms: C-DIFF Date of last positivie culture/infection: 2006 MDRO Source:: cdiff Past Surgical History: Appendectomy, Back Surgery, Heart Catheterization, Hysterectomy, Orthopedic Surgery Additional Past Surgical History / Comment(s): cystoscopy 08/2023, l4-5, l5-s1 laminectomy Past Anesthesia/Blood Transfusion Reactions: No Reported Reaction Past Psychological History: No Psychological Hx Reported Smoking Status: Former smoker Past Alcohol Use History: None Reported Past Drug Use History: None Reported Past Medical History Past Medical History: Blood Disorder, Hyperlipidemia, Hypertension, Myocardial Infarction ([place]) Additional Past Medical History / Comment(s): blind, spacer rt eye, legally blind left eye, anemia Last Myocardial Infarction Date:: ? History of Any Multi-Drug Resistant Organisms: C-DIFF Date of last positivie culture/infection: 2006 MDRO Source:: cdiff Past Surgical History: Appendectomy, Back Surgery, Heart Catheterization, Hysterectomy, Orthopedic Surgery Additional Past Surgical History / Comment(s): cystoscopy 08/2023, l4-5, l5-s1 laminectomy Past Anesthesia/Blood Transfusion Reactions: No Reported Reaction Past Psychological History: No Psychological Hx Reported Smoking Status: Former smoker Past Alcohol Use History: None Reported Past Drug Use History: None Reported - Past Family History Father Additional Family Medical History / Comment(s): coronary thrombosis Medications and Allergies Home Medications Medication Instructions Recorded Confirmed Type Acetaminophen Tab [Tylenol] 1,000 mg PO TID 10/08/23 03/26/24 History Alendronate Sodium [Fosamax] 70 mg PO Q7D 10/08/23 03/26/24 History Calcium Carbonate [Calcium] 1,200 mg PO DAILY 10/08/23 03/26/24 History Cyanocobalamin (Vitamin B-12) 1,000 mcg PO DAILY 10/08/23 03/26/24 History [Vitamin B-12] Famotidine [Pepcid] 20 mg PO BID 10/08/23 03/26/24 History Ferrous Gluconate 324 mg PO Q2D 10/08/23 03/26/24 History Garlic 1,000 mg PO DAILY 10/08/23 03/26/24 History Labetalol [Trandate] 100 mg PO BID 10/08/23 03/26/24 History Lactobacillus Acidophilus 1 tab PO DAILY 10/08/23 03/26/24 History [Acidophilus] Simvastatin [Zocor] 40 mg PO HS 10/08/23 03/26/24 History Solifenacin Succinate [Vesicare] 10 mg PO DAILY 10/08/23 03/26/24 History Triple [place] 1 tab PO BID 10/08/23 03/26/24 History Ubidecarenone [Coenzyme Q10] 200 mg PO DAILY 10/08/23 03/26/24 History diphenhydrAMINE HCL [Benadryl] 25 mg PO HS PRN 10/08/23 03/26/24 History HYDROcodone/APAP 10-325MG [[place] 1 tab PO TID 02/06/24 03/26/24 History 10-325] Cranberry 42,000 Mg 42,000 mg PO DAILY 02/07/24 03/26/24 History Ondansetron Odt [Zofran ODT] 8 mg PO BID PRN 02/07/24 03/26/24 History Spironolactone [Aldactone] 25 mg PO DAILY 02/07/24 03/26/24 History tiZANidine [Zanaflex] 4 mg PO TID PRN 02/07/24 03/26/24 History Aslrwdku-Bjfiqsdpi-Fdffbbrk 1 applic RIGHT EYE HS 03/26/24 03/26/24 History [Maxitrol Ophth Oint] Allergies Allergy/AdvReac Type Severity Reaction Status Date / Time adhesive tape Allergy Unknown Verified 03/26/24 20:42 amlodipine Allergy Swelling Verified 03/26/24 20:42 codeine Allergy Rash/Hives Verified 03/26/24 20:42 duloxetine [From Cymbalta] Allergy Unknown Verified 03/26/24 20:42 lisinopril Allergy Unknown Verified 03/26/24 20:42 pregabalin [From Lyrica] Allergy Unknown Verified 03/26/24 20:42 venlafaxine [From Effexor] Allergy Rash/Hives Verified 03/26/24 20:42 morphine [From MS Contin] AdvReac Hallucinati Verified 03/26/24 20:42 ons Physical Exam Vitals: Vital Signs Temp Pulse Pulse Resp BP Pulse Ox 03/27/24 06:00 64 16 127/87 98 03/27/24 04:36 65 16 125/78 97 03/27/24 03:00 64 18 121/81 96 03/27/24 02:00 70 18 121/87 96 03/27/24 01:00 71 12 121/83 95 03/27/24 00:00 71 16 113/79 97 03/26/24 23:02 67 18 113/79 97 03/26/24 21:26 78 18 107/87 98 03/26/24 20:08 81 18 123/95 97 03/26/24 18:00 76 03/26/24 17:30 72 18 125/76 97 03/26/24 16:56 98.3 F 76 20 105/79 98 Intake and Output 03/26/24 03/27/24 03/27/24 22:59 06:59 14:59 Other: Weight 45.359 kg Results CBC & Chem 7: 03/27/24 08:45 03/26/24 18:03 Labs: Abnormal Lab Results - Last 24 Hours (Table) 03/26/24 03/26/24 03/26/24 Range/Units 18:03 18:03 18:03 RBC 3.77 L (3.80-5.40) m/uL Lymphocytes # 0.9 L (1.0-4.8) k/uL BUN 46 H (7-17) mg/dL Creatinine 1.61 H (0.52-1.04) mg/dL Calcium 10.3 H (8.4-10.2) mg/dL Troponin I 0.035 H* (0.000-0.034) ng/mL 03/26/24 03/27/24 Range/Units 21:27 00:20 RBC (3.80-5.40) m/uL Lymphocytes # (1.0-4.8) k/uL BUN (7-17) mg/dL Creatinine (0.52-1.04) mg/dL Calcium (8.4-10.2) mg/dL Troponin I 0.043 H* 0.045 H* (0.000-0.034) ng/mL
[2024-03-27] MEDS: SODIUM CHLORIDE 0.45% 1,000 ML IV SCH (18:18)
--- NOTE | 2024-03-27 18:49 | P.CRDCN ---
History of Present Illness Consult date: 03/27/24 Consult reason: chest pain History of present illness: This is a 78-year-old female follows with a power generation turbine room operator and the thumb area with past medical history of hypertension hyperlipidemia, possible [place], history of smoking. We have been asked to evaluate for chest pain. Patient states that she has had chest pain for the past 4 to 5 days in the upper left chest and also to the right side with shortness of breath. No sweats. Patient denies ever having cardiac stent. She states that she had a cardiac cath done in [place] 2 to 3 months ago but we know that catheterizations are not done at that facility. She states she also had her medications reviewed by her power generation turbine room operator 1 to 2 days ago. She does states she has some pain now at a 77.5/10. Blood pressure 127/87, heart rate 64, pulse ox 90% on room air. Patient has been started on aspirin, nitroglycerin sublingual and Nitropaste. Discussed results of the EKG changes with the patient. Patient given option of undergoing cardiac catheterization which she states she would only want to do with her power generation turbine room operator. EKG: Sinus rhythm probable hypertensive cardiovascular disease with a new change from January. Chest x-ray: Cardiomegaly with posterior pleural effusion on lateral projection Laboratory studies: Troponin 0.035, 0.043, 0.045, magnesium 2.1. Sodium 141, potassium 4.5, BUN 46 creatinine 1.61. Home cardiac medications: Labetalol 100 mg twice daily, simvastatin 40 mg at bedtime, Aldactone 25 mg daily. Review Of Systems: At the time of my exam: CONSTITUTIONAL: Denies fever or chills. HEENT: Denies blurred vision, vision changes, or eye pain. Denies hemoptysis CARDIOVASCULAR: Reports chest pain. Denies orthopnea. Denies PND. Denies palpitations RESPIRATORY: Denies shortness of breath. GASTROINTESTINAL: Denies abdominal pain. Denies nausea or vomiting. HEMATOLOGIC: Denies bleeding disorders. GENITOURINARY: Denies any blood in urine. SKIN: Denies puritis. Denies rash. Physical examination: Gen: This is a 78-year-old female in no acute distress VS: reviewed HEENT: Head is atraumatic, normocephalic. Pupils equal, round. Sclerae is anicteric. NECK: Supple. No JVD. LUNGS: Clear to auscultation. No wheezes or rhonchi. No intercostal retractions. HEART: Regular rate and rhythm. No murmur. ABDOMEN: Soft No tenderness. EXTREMITIES: No pedal edema. No calf tenderness. NEUROLOGICAL: Patient is awake, alert and oriented x3. Assessment: Elevated troponin, rule out acute coronary syndrome with EKG changes as well History of hypertension Hyperlipidemia Remote history of tobacco use Chronic kidney disease versus acute kidney injury Plan: Resume patient's home cardiac medications Start patient on heparin drip Obtain cardiac cath results from her power generation turbine room operator. Obtain 2-D echocardiogram and Doppler study to assess cardiac structure and function Further recommendations to follow based upon clinical course Thank you kindly for this consultation. Nurse practitioner note has been reviewed, I agree with documented findings and plan of care. Patient was seen and examined. Past Medical History Past Medical History: Blood Disorder, Hyperlipidemia, Hypertension, Myocardial Infarction ([place]) Additional Past Medical History / Comment(s): blind, spacer rt eye, legally blind left eye, anemia Last Myocardial Infarction Date:: ? History of Any Multi-Drug Resistant Organisms: C-DIFF Date of last positivie culture/infection: 2006 MDRO Source:: cdiff Past Surgical History: Appendectomy, Back Surgery, Heart Catheterization, Hysterectomy, Orthopedic Surgery Additional Past Surgical History / Comment(s): cystoscopy 08/2023, l4-5, l5-s1 laminectomy Past Anesthesia/Blood Transfusion Reactions: No Reported Reaction Past Psychological History: No Psychological Hx Reported Smoking Status: Former smoker Past Alcohol Use History: None Reported Past Drug Use History: None Reported - Past Family History Father Additional Family Medical History / Comment(s): coronary thrombosis Medications and Allergies Home Medications Medication Instructions Recorded Confirmed Type Acetaminophen Tab [Tylenol] 1,000 mg PO TID 10/08/23 03/26/24 History Alendronate Sodium [Fosamax] 70 mg PO Q7D 10/08/23 03/26/24 History Calcium Carbonate [Calcium] 1,200 mg PO DAILY 10/08/23 03/26/24 History Cyanocobalamin (Vitamin B-12) 1,000 mcg PO DAILY 10/08/23 03/26/24 History [Vitamin B-12] Famotidine [Pepcid] 20 mg PO BID 10/08/23 03/26/24 History Ferrous Gluconate 324 mg PO Q2D 10/08/23 03/26/24 History Garlic 1,000 mg PO DAILY 10/08/23 03/26/24 History Labetalol [Trandate] 100 mg PO BID 10/08/23 03/26/24 History Lactobacillus Acidophilus 1 tab PO DAILY 10/08/23 03/26/24 History [Acidophilus] Simvastatin [Zocor] 40 mg PO HS 10/08/23 03/26/24 History Solifenacin Succinate [Vesicare] 10 mg PO DAILY 10/08/23 03/26/24 History Triple [place] 1 tab PO BID 10/08/23 03/26/24 History Ubidecarenone [Coenzyme Q10] 200 mg PO DAILY 10/08/23 03/26/24 History diphenhydrAMINE HCL [Benadryl] 25 mg PO HS PRN 10/08/23 03/26/24 History HYDROcodone/APAP 10-325MG [[place] 1 tab PO TID 02/06/24 03/26/24 History 10-325] Cranberry 42,000 Mg 42,000 mg PO DAILY 02/07/24 03/26/24 History Ondansetron Odt [Zofran ODT] 8 mg PO BID PRN 02/07/24 03/26/24 History Spironolactone [Aldactone] 25 mg PO DAILY 02/07/24 03/26/24 History tiZANidine [Zanaflex] 4 mg PO TID PRN 02/07/24 03/26/24 History Asfcpinr-Yypeiuitk-Qzwwjlxl 1 applic RIGHT EYE HS 03/26/24 03/26/24 History [Maxitrol Ophth Oint] Allergies Allergy/AdvReac Type Severity Reaction Status Date / Time adhesive tape Allergy Unknown Verified 03/26/24 20:42 amlodipine Allergy Swelling Verified 03/26/24 20:42 codeine Allergy Rash/Hives Verified 03/26/24 20:42 duloxetine [From Cymbalta] Allergy Unknown Verified 03/26/24 20:42 lisinopril Allergy Unknown Verified 03/26/24 20:42 pregabalin [From Lyrica] Allergy Unknown Verified 03/26/24 20:42 venlafaxine [From Effexor] Allergy Rash/Hives Verified 03/26/24 20:42 morphine [From MS Contin] AdvReac Hallucinati Verified 03/26/24 20:42 ons Physical Exam Vitals: Vital Signs Temp Pulse Pulse Resp BP Pulse Ox 03/27/24 06:00 64 16 127/87 98 03/27/24 04:36 65 16 125/78 97 03/27/24 03:00 64 18 121/81 96 03/27/24 02:00 70 18 121/87 96 03/27/24 01:00 71 12 121/83 95 03/27/24 00:00 71 16 113/79 97 03/26/24 23:02 67 18 113/79 97 03/26/24 21:26 78 18 107/87 98 03/26/24 20:08 81 18 123/95 97 03/26/24 18:00 76 03/26/24 17:30 72 18 125/76 97 03/26/24 16:56 98.3 F 76 20 105/79 98 Intake and Output 03/26/24 03/27/24 03/27/24 22:59 06:59 14:59 Other: Weight 45.359 kg Results 03/27/24 08:45 03/26/24 18:03 Cardiac Enzymes 03/26/24 03/26/24 03/26/24 Range/Units 18:03 18:03 21:27 AST 27 (14-36) U/L Troponin I 0.035 H* 0.043 H* (0.000-0.034) ng/mL 03/27/24 Range/Units 00:20 AST (14-36) U/L Troponin I 0.045 H* (0.000-0.034) ng/mL Coagulation 03/26/24 Range/Units 18:03 PT 10.4 (10.0-12.5) sec APTT 25.8 (22.0-30.0) sec CBC 03/26/24 Range/Units 18:03 WBC 6.3 (3.8-10.6) k/uL RBC 3.77 L (3.80-5.40) m/uL Hgb 11.4 (11.4-16.0) gm/dL Hct 35.8 (34.0-46.0) % Plt Count 309 (150-450) k/uL Comprehensive Metabolic Panel 03/26/24 Range/Units 18:03 Sodium 141 (137-145) mmol/L Potassium 4.5 (3.5-5.1) mmol/L Chloride 106 (98-107) mmol/L Carbon Dioxide 25 (22-30) mmol/L BUN 46 H (7-17) mg/dL Creatinine 1.61 H (0.52-1.04) mg/dL Glucose 93 (74-99) mg/dL Calcium 10.3 H (8.4-10.2) mg/dL AST 27 (14-36) U/L ALT 13 (4-34) U/L Alkaline Phosphatase 49 (38-126) U/L Total Protein 6.9 (6.3-8.2) g/dL Albumin 4.4 (3.5-5.0) g/dL Current Medications Generic Name Dose Route Start Last Admin Trade Name Freq PRN Reason Stop Dose Admin Aspirin 325 mg 03/27/24 09:00 Aspirin 325 Mg Tab PO DAILY RICHAR Nitroglycerin 0.4 mg 03/26/24 19:37 Nitroglycerin Sl Tabs 0.4 Mg Tab SUBLINGUAL Q5M PRN Chest Pain Nitroglycerin 1 inch 03/27/24 00:00 03/27/24 05:12 Nitroglycerin Oint 1 Inch/Gm Packet TOPICAL 1 inch Q6HR RICHAR Administration Intake and Output 03/26/24 03/27/24 03/27/24 22:59 06:59 14:59 Other: Weight 45.359 kg 03/26/24 18:03 03/26/24 18:03
[2024-03-27] MEDS: ATORVASTATIN 20 MG TAB PO SCH (20:43)
[2024-03-27] MEDS: NEOMYCIN-POLYMYXIN-DEXAMETH OINT 3.5 GM TUBE RIGHT EYE SCH (20:44)
[2024-03-27] MEDS: ONDANSETRON ODT 4 MG TAB PO PRN (20:45)
[2024-03-28 06:15] LABS: Basophils % (A) 0 %; Eosinophils # (A) 0.1 k/uL (0-0.7); Eosinophils % (A) 2 %; HCT 31.8 % (34.0-46.0); HGB 9.8 gm/dL (11.4-16.0); Hypochromasia Slight; Lymphocytes # (A) 1.3 k/uL (1.0-4.8); Lymphocytes % (A) 19 %; MCH 29.6 pg (25.0-35.0); MCHC 30.9 g/dL (31.0-37.0); MCV 95.7 fL (80.0-100.0); Mean Platelet Volume 8.4; Monocytes # (A) 0.4 k/uL (0-1.0); Monocytes % (A) 6 %; Neutrophils # (A) 4.9 k/uL (1.3-7.7); Neutrophils % (A) 71 %; Platelet Count 270 k/uL (150-450); RBC 3.32 m/uL (3.80-5.40); RDW 15.4 % (11.5-15.5); WBC 6.8 k/uL (3.8-10.6)
[2024-03-28 06:25] LABS: African American GFR (CKD) 37 (>60 ml/min/1.73 sqM); Anion Gap 6 mmol/L; Blood Urea Nitrogen 46 mg/dL (7-17); Carbon Dioxide 26 mmol/L (22-30); Chloride 106 mmol/L (98-107); Glucose 83 mg/dL (74-99); Non-African American GFR(CKD) 32 (>60 ml/min/1.73 sqM); Potassium 4.6 mmol/L (3.5-5.1); Sodium 138 mmol/L (137-145)
[2024-03-28 06:29] LABS: Prothrombin Time 10.9 sec (10.0-12.5)
[2024-03-28] MEDS ORDERED: NITROGLYCERIN SL TABS 0.4 MG TAB SUBLINGUAL PRN (07:52)
[2024-03-28] MEDS ORDERED: ALPRAZolam 0.5 MG TAB PO PRN (07:52)
[2024-03-28] MEDS ORDERED: ALPRAZolam 0.25 MG TAB PO PRN (07:52)
[2024-03-28] MEDS: ASPIRIN 325 MG TAB PO STA (08:20)
[2024-03-28] MEDS: ATORVASTATIN 80 MG TAB PO STA (08:21)
--- NOTE | 2024-03-28 10:17 | P.PN ---
Subjective Progress Note Date: 03/28/24 Consult reason: chest pain History of present illness: This is a 78-year-old female follows with a oncology consultant and the thumb area with past medical history of hypertension hyperlipidemia, possible [place], history of smoking. We have been asked to evaluate for chest pain. Patient states that she has had chest pain for the past 4 to 5 days in the upper left chest and also to the right side with shortness of breath. No sweats. Patient denies ever having cardiac stent. She states that she had a cardiac cath done in [place] 2 to 3 months ago but we know that catheterizations are not done at that facility. She states she also had her medications reviewed by her oncology consultant 1 to 2 days ago. She does states she has some pain now at a 77.5/10. Blood pressure 127/87, heart rate 64, pulse ox 90% on room air. Patient has been started on aspirin, nitroglycerin sublingual and Nitropaste. Discussed results of the EKG changes with the patient. Patient given option of undergoing cardiac catheterization which she states she would only want to do with her oncology consultant. EKG: Sinus rhythm probable hypertensive cardiovascular disease with a new change from January. Chest x-ray: Cardiomegaly with posterior pleural effusion on lateral projection Laboratory studies: Troponin 0.035, 0.043, 0.045, magnesium 2.1. Sodium 141, potassium 4.5, BUN 46 creatinine 1.61. Home cardiac medications: Labetalol 100 mg twice daily, simvastatin 40 mg at bedtime, Aldactone 25 mg daily. 03/28 Records from her oncology consultant have not been obtained. Discussed options with the patient and she is agreeable to move forward with cardiac catheterization today. She states she continues to have chest pain at a 7 out of 10. Yesterday, she was started on a heparin drip. Echocardiogram has been obtained and report is pending. Blood pressure 103/78, heart rate 65, pulse ox 96% on room air. Repeat blood work reveals hemoglobin 9.8. BUN 46 and creatinine 1.54. Physical examination: Gen: This is a 78-year-old female in no acute distress VS: reviewed HEENT: Head is atraumatic, normocephalic. Pupils equal, round. Sclerae is anicteric. NECK: Supple. No JVD. LUNGS: Clear to auscultation. No wheezes or rhonchi. No intercostal retractions. HEART: Regular rate and rhythm. No murmur. ABDOMEN: Soft No tenderness. EXTREMITIES: No pedal edema. No calf tenderness. NEUROLOGICAL: Patient is awake, alert and oriented x3. Assessment: Elevated troponin, rule out acute coronary syndrome with EKG changes as well History of hypertension Hyperlipidemia Remote history of tobacco use Chronic kidney disease versus acute kidney injury Plan: Continue patient's home cardiac medications Continue patient on heparin drip Obtain 2-D echocardiogram and Doppler study report Schedule patient for cardiac catheterization today with Dr. Amaya Further recommendations to follow based upon clinical course Nurse practitioner note has been reviewed, I agree with documented findings and plan of care. Patient was seen and examined. Objective - Vital Signs Vital signs: Vital Signs Temp 98.3 F 03/26/24 16:56 Pulse 64 03/28/24 06:03 Resp 17 03/28/24 06:03 BP 130/94 03/28/24 06:03 Pulse Ox 99 03/28/24 06:03 FiO2 - Labs CBC & Chem 7: 03/28/24 05:40 03/28/24 05:40 Labs: Abnormal Lab Results - Last 24 Hours (Table) 03/27/24 03/27/24 03/27/24 Range/Units 08:45 08:45 17:19 RBC 3.63 L (3.80-5.40) m/uL Hgb 11.1 L (11.4-16.0) gm/dL Hct 33.9 L (34.0-46.0) % MCHC (31.0-37.0) g/dL APTT 19.7 L 57.5 H (22.0-30.0) sec BUN (7-17) mg/dL Creatinine (0.52-1.04) mg/dL 03/28/24 03/28/24 03/28/24 Range/Units 05:40 05:40 05:40 RBC 3.32 L (3.80-5.40) m/uL Hgb 9.8 L (11.4-16.0) gm/dL Hct 31.8 L (34.0-46.0) % MCHC 30.9 L (31.0-37.0) g/dL APTT 50.1 H (22.0-30.0) sec BUN 46 H (7-17) mg/dL Creatinine 1.54 H (0.52-1.04) mg/dL
--- NOTE | 2024-03-28 10:53 | CA ---
Transthoracic Echo Report Name: Gretta Jerez Age: 78 Gender: F : 1945 Exam Date: 03/27/2024 14:51 Exam Location: [facility] Ht (in): 65 Wt (lb): 100 Ordering Physician: Candace Wheat Attending/Referring Phys: [id number], Jarret Administration Clerk Nuria Tinoco, YARI Procedure CPT: Indications: LVF Cardiac Hx: Technical Quality: Fair Contrast 1: Total Dose (mL): Contrast 2: Total Dose (mL): MEASUREMENTS (Male / Female) Normal Values 2D ECHO LV Diastolic Diameter PLAX 3.2 cm 4.2 - 5.9 / 3.9 - 5.3 cm LV Systolic Diameter PLAX 1.8 cm IVS Diastolic Thickness 1.6 cm 0.6 - 1.0 / 0.6 - 0.9 cm LVPW Diastolic Thickness 1.6 cm 0.6 - 1.0 / 0.6 - 0.9 cm LV Relative Wall Thickness 1.0 RV Internal Dim ED PLAX 3.3 cm LA Systolic Diameter LX 4.1 cm 3.0 - 4.0 / 2.7 - 3.8 cm LV Diastolic Volume MOD BP 34.4 cm??? 67 - 155 / 56 - 104 cm??? LV Systolic Volume MOD BP 12.5 cm??? 22 - 58 / 19 - 49 cm??? LV Ejection Fraction MOD BP 63.8 % >= 55 % LV Cardiac Index MOD BP 1395.4 cm???/min???m??? LV Diastolic Volume MOD 4C 33.5 cm??? LV Systolic Volume MOD 4C 6.0 cm??? LV Ejection Fraction MOD 4C 82.2 % LV Cardiac Index MOD 4C 1754.1 cm???/min???m??? LV Diastolic Length 4C 6.1 cm LV Systolic Length 4C 1.5 cm LV Diastolic Volume MOD 2C 32.5 cm??? LV Systolic Volume MOD 2C 9.3 cm??? LV Ejection Fraction MOD 2C 71.3 % LV Cardiac Index MOD 2C 1474.3 cm???/min???m??? LV Diastolic Length 2C 6.7 cm LV Systolic Length 2C 4.8 cm LA Volume 50.5 cm??? 18 - 58 / 22 - 52 cm??? LA Volume Index 35.3 cm???/m??? 16 - 28 cm???/m??? M-MODE Aortic Root Diameter MM 3.7 cm LA Systolic Diameter MM 3.5 cm LA Ao Ratio MM 0.9 AV Cusp Separation MM 1.7 cm DOPPLER AI Peak Velocity 251.7 cm/s AI Peak Gradient 25.3 mmHg AI Pressure Half Time 835.9 ms MV Area PHT 3.2 cm??? Mitral E Point Velocity 54.5 cm/s Mitral A Point Velocity 82.6 cm/s Mitral E to A Ratio 0.7 MV Deceleration Time 240.8 ms TR Peak Velocity 202.9 cm/s TR Peak Gradient 16.5 mmHg FINDINGS Left Ventricle Left ventricular ejection fraction is estimated at 60-65 %. Moderately increased septal wall thickness. Moderately increased posterior wall thickness. No obvious regional wall motion abnormalities. Left ventricular cavity size normal. Right Ventricle Normal right ventricular size and function. Right ventricular systolic pressure within normal limits. Right Atrium Mild right atrial dilatation. Left Atrium Mildly increased left atrial diameter. Moderately increased left atrial volume. Mitral Valve Myxomatous (redundant) mitral valve. Pjhz-ei-cdxqocuh mitral regurgitation. No mitral stenosis. Aortic Valve Trileaflet aortic valve. No aortic stenosis. Trace to mild aortic regurgitation. Tricuspid Valve Structurally normal tricuspid valve. Mild tricuspid regurgitation. Pulmonic Valve Structurally normal pulmonic valve. Trace to mild pulmonic regurgitation. No pulmonic stenosis. Pericardium Moderate pericardial effusion. Pericardial effusion located anteriorly. Aorta Moderately dilated proximal ascending aorta (tube) 4.2cm. CONCLUSIONS 60-65% EF, Mod LVH, Moderate pericardial effusion, Dilated aorta Previewed by: Dr. Werner Dobson MD (Electronically Signed) Final Date: 28 March 2024 10:52
[2024-03-28 11:33] LABS: Glucose,Whole Blood 100 mg/dL (70-110)
[2024-03-28 12:30] LABS: Amorphous Sediment,Urine Rare /hpf; Appearance,Urine Turbid (Clear); Bacteria,Urine Many /hpf; Bilirubin,Urine Negative (Negative); Blood,Urine Trace (Negative); Color,Urine Yellow; Glucose,Urine (UA) Negative (Negative); Ketones,Urine Negative (Negative); Leukocyte Esterase,Urine Large (Negative); Nitrite,Urine Positive (Negative); Protein,Urine 3+ (Negative); RBC,Urine 90 /hpf (0-5); Specific Gravity,Urine 1.022 (1.001-1.035); Squamous Epithelial Cell,Urine 6 /hpf (0-4); Urobilinogen,Urine <2.0 mg/dL (<2.0); WBC,Urine 88 /hpf (0-5)
[2024-03-28] MEDS: IV FLUID CONTINUATION 950 ML IV ONE (14:45)
[2024-03-28] MEDS: ONDANSETRON 4 MG/2 ML VIAL IVP ONE (14:46)
[2024-03-28] MEDS: MIDAZOLAM 2 MG/2 ML VIAL IVP ONE (14:52)
[2024-03-28] MEDS: LIDOCAINE 1% INJ 10MG/ML (20 ML MDV) SQ ONE (14:59)
[2024-03-28] MEDS: VERAPAMIL SYRINGE (5 MG/10 ML) INTRAARTER ONE (15:02)
[2024-03-28] MEDS: HEPARIN SODIUM 1,000 UN/ML (10ML VL) IVP ONE (15:08)
[2024-03-28] MEDS: IOPAMIDOL-370 200ML BTL INJ ONE (15:11)
[2024-03-28] MEDS ORDERED: RX INFO: IV CONTRAST WAS GIVEN 1 EACH MISC MISCELLANE PRN (15:11)
--- NOTE | 2024-03-28 15:15 | P.PCN ---
Date of Procedure: 03/28/24 Operative Findings: CARDIAC CATHETERIZATION PERFORMING PHYSICIAN: Carlos Amaya MD, RPVI PROCEDURE PERFORMED: 1. Selective right and left coronary angiogram INDICATION: Acute non-ST elevation myocardial infarction COMPLICATION: None APPROACH: Right radial artery LEVEL OF SEDATION: Moderate with a sedation length of 14 minutes PROCEDURE DESCRIPTION: After obtaining an informed consent, the patient was brought to cardiac labor relations consultant. Local anesthesia was performed using lidocaine subcutaneously. The right radial artery was cannulated using Seldinger technique, the guidewire passed easily, following that we advanced a 5-Filipino sheath dilator assembly, the wire and dilator were removed and sheath was flushed. Following that, 2 mg of verapamil along with 2000 unit heparin were given. Selective right and left coronary angiogram using a 6-Filipino JR4 and JL 3.5 catheters. The procedure was completed there was no complication. SELECTIVE CORONARY ANGIOGRAM: The right coronary artery: Large caliber vessel and is dominant vessel with mild disease only Left main: Has mild disease only The left circumflex: Large-caliber vessel nondominant vessel with mild to moderate disease with no high-grade stenosis. It gives rise into the first and second obtuse marginal branches. The second obtuse marginal branch has intermediate lesion appears to be in the range of 40% The left anterior descending artery: Large-caliber vessel with mild disease only. Gives rise into the first and second diagonal branches both appear to have mild disease only CONCLUSION: 1. Mild to moderate nonobstructive coronary artery disease POSTPROCEDURE MANAGEMENT: Medical treatment
--- NOTE | 2024-03-28 16:42 | P.PN ---
Progress Note - Text Progress Note Date: 03/28/24 Chief Complaint: Chest pain This is a 78-year-old patient who lives at a assisted living-[facility] [place]. PCP Dr. Contreras Patient presents to the ER with chest discomfort going on for 4 to 5 days. Somewhat constant. No radiation. Some shortness of breath. No precipitating or relieving factor. No fever no chills. No cough. March 28: Patient in the ER overflow. Seen this afternoon. Pending cardiac catheterization. Still having some chest pain. NPO. Active Medications Acetaminophen (Acetaminophen Tab 500 Mg Tab) 1,000 mg PO TID [facility] Last Admin: 03/28/24 08:51 Dose: Not Given Hydrocodone Bitart/Acetaminophen (Hydrocodone/Apap 10-325mg 1 Each Tab) 1 each PO TID [facility] Last Admin: 03/28/24 08:41 Dose: 1 each Alprazolam (Alprazolam 0.25 Mg Tab) 0.25 mg PO Q6HR PRN PRN Reason: Mild Anxiety Alprazolam (Alprazolam 0.5 Mg Tab) 0.5 mg PO Q6HR PRN PRN Reason: Moderate Anxiety Aspirin (Aspirin 325 Mg Tab) 325 mg PO DAILY [facility] Last Admin: 03/28/24 08:19 Dose: Not Given Atorvastatin Calcium (Atorvastatin 20 Mg Tab) 20 mg PO HS [facility] Last Admin: 03/27/24 20:43 Dose: 20 mg Calcium Carbonate/Glycine (Calcium Carbonate 500 Mg Chewable) 1,000 mg PO DAILY [facility] Last Admin: 03/28/24 08:20 Dose: 1,000 mg Cyanocobalamin (Cyanocobalamin 500 Mcg Tab) 1,000 mcg PO DAILY [facility] Last Admin: 03/28/24 08:21 Dose: 1,000 mcg Famotidine (Famotidine 20 Mg Tab) 20 mg PO DAILY [facility] Ferrous Sulfate (Ferrous Sulfate 325 Mg Tab) 325 mg PO Q2D@0900 [facility] Last Admin: 03/28/24 08:20 Dose: 325 mg Heparin Sodium (Porcine) (Heparin Sodium 1,000 Un/Ml (10ml Vl)) 0 unit IV PER PROTOCOL PRN; Protocol PRN Reason: Low PTT Heparin Sodium/Sodium Chloride (25,000 unit/ Sodium Chloride) 250 mls @ 5.443 mls/hr IV .Q24H [facility]; Protocol Last Admin: 03/27/24 11:12 Dose: 12 units/kg/hr, 5.443 mls/hr Sodium Chloride (Saline 0.45%) 1,000 mls @ 75 mls/hr IV .[id number] [facility] Last Admin: 03/28/24 05:27 Dose: 75 mls/hr Heparin Sodium (Porcine) 10, (000 unit/ Sodium Chloride) 1,001 mls @ 999 mls/hr IRRIGATION ONCE PRN PRN Reason: INTRA-OP Stop: 03/29/24 23:00 Heparin Sodium (Porcine) 2,500 (unit/ Sodium Chloride) 250.5 mls @ 250 mls/hr IRRIGATION ONCE PRN PRN Reason: INTRA-OP Stop: 03/29/24 23:00 Sodium Chloride (Saline 0.9%) 1,000 mls @ 75 mls/hr IV .[id number] [facility] Stop: 03/28/24 20:14 Labetalol HCl (Labetalol 100 Mg Tab) 100 mg PO BID [facility] Last Admin: 03/28/24 08:20 Dose: 100 mg Lactobacillus Acidophilus (Lactobacillus Acidophilus/Pect 1 Each Capsule) 1 each PO DAILY [facility] Last Admin: 03/28/24 11:06 Dose: Not Given Miscellaneous Information (Rx Info: Iv Contrast Was Given 1 Each Misc) 1 each MISCELLANE DAILY PRN PRN Reason: Per Protocol Stop: 03/30/24 15:11 Neomycin/Polymyxin/Dexamethasone (Yokggdzt-Gzeizklgf-Mkrigksb Oint 3.5 Gm Tube) 1 applic RIGHT EYE HS [facility] Last Admin: 03/27/24 20:44 Dose: 1 applic Nitroglycerin (Nitroglycerin Oint 1 Inch/Gm Packet) 1 inch TOPICAL Q6HR [facility] Last Admin: 03/28/24 13:54 Dose: Not Given Nitroglycerin (Nitroglycerin Sl Tabs 0.4 Mg Tab) 0.4 mg SUBLINGUAL Q5M PRN PRN Reason: Chest Pain Ondansetron HCl (Ondansetron Odt 4 Mg Tab) 8 mg PO BID PRN PRN Reason: Nausea Last Admin: 03/28/24 05:59 Dose: 8 mg Tizanidine HCl (Tizanidine 4 Mg Tab) 4 mg PO TID PRN PRN Reason: Muscle Spasm Trospium (Trospium Chloride 20 Mg Tablet) 20 mg PO BID [facility] Last Admin: 03/28/24 08:20 Dose: 20 mg Social history: Lives at [facility] y[facility]. Former smoker. Physical examination: VITAL SIGNS: Afebrile, 69, 18, 94/71, 98% room air GENERAL: Laying in bed, comfortable EYES: Absent right eye. Blind HEENT: External appearance of nose and ears normal, oral cavity grossly normal. NECK: JVD not raised; masses not palpable. HEART: First and second heart sounds are normal; no edema. LUNGS: Respiratory rate normal; decreased breath sound. ABDOMEN: Soft, mild tenderness no guarding rigidity r, liver spleen not palpable, no masses palpable. PSYCH: Patient able to answer simple questions. But forgetful l. MUSCULOSKELETAL:No Clubbing/cyanosis;muscles-grossly intact. OA multiple joints NEUROLOGICAL: Blind. INVESTIGATIONS, reviewed in the clinical context: 2D echocardiogram: EF 60-65%. Moderate increased posterior wall thickness and septal wall thickness. Moderate pericardial effusion. March 28: White count 6.8 hemoglobin 9.8 potassium 4.6 BUN 46 creatinine 1.54 March 27, 2024: White count 6 hemoglobin 11.1 platelets 171 Sodium 141 potassium 4.5 BUN 46 creatinine 1.61 EKG tracing personally reviewed by me-normal sinus rhythm. Rate 68, LVH. Some ST-T wave changes inferolateral leads Chest x-ray film personally reviewed by me-hyperinflation., Some cardiomegaly Troponin I 0.035, 0.043, 0.045 LDL 91.1 Previous labs: Creatinine 0.99 on February 10, 2024 Renal ultrasound January 2024: Unremarkable Assessment plan: -Acute kidney injury., Patient on Aldactone: Slow to respond Renal ultrasound was unremarkable in January 2024 Hold Aldactone. IV fluids increased to 100 cc an hour -Acute coronary syndrome, anterior chest wall pain.: Not improving troponins that are leveled off in the setting of kidney injury. EKG changes are present. IV heparin. Telemetry. Cardiology following Lopressor 12.5 twice daily Cardiac catheterization today -Moderate pericardial effusion Check ESR, CRP -IV heparin monitoring Follow PTT -Mild to moderate cognitive impairment possible late onset Alzheimer's dementia. - Blind Right eye enucleated -GERD Pepcid -Primary osteoarthritis Pain medication as needed -Hyperlipidemia Zocor -Full code Check ESR CRP. Cardiac catheterization today. Increase IV fluids to 100 cc an hour. Past Medical History Past Medical History: Blood Disorder, Hyperlipidemia, Hypertension, Myocardial Infarction ([place]) Additional Past Medical History / Comment(s): blind, spacer rt eye, legally blind left eye, anemia Last Myocardial Infarction Date:: ? History of Any Multi-Drug Resistant Organisms: C-DIFF Date of last positivie culture/infection: 2006 MDRO Source:: cdiff Past Surgical History: Appendectomy, Back Surgery, Heart Catheterization, Hysterectomy, Orthopedic Surgery Additional Past Surgical History / Comment(s): cystoscopy 08/2023, l4-5, l5-s1 laminectomy Past Anesthesia/Blood Transfusion Reactions: No Reported Reaction Past Psychological History: No Psychological Hx Reported Smoking Status: Former smoker Past Alcohol Use History: None Reported Past Drug Use History: None Reported
[2024-03-28] MEDS: SODIUM CHLORIDE 0.9% 1,000 ML IV SCH (17:25)
[2024-03-29 03:33] VITALS: TEMP 98.6
[2024-03-29] MEDS ORDERED: HEPARIN SODIUM,PORCINE (1 ML) 2,500 UNIT in SODIUM CHLORIDE 0.9% 250 ML IRRIGATION PRN (07:00)
[2024-03-29] MEDS ORDERED: HEPARIN SODIUM,PORCINE 10,000 UNIT in SODIUM CHLORIDE 0.9% 1,000 ML IRRIGATION PRN (07:00)
[2024-03-29 08:04] LABS: African American GFR (CKD) 53 (>60 ml/min/1.73 sqM); Anion Gap 2 mmol/L; Blood Urea Nitrogen 35 mg/dL (7-17); Calcium 9.1 mg/dL (8.4-10.2); Carbon Dioxide 22 mmol/L (22-30); Chloride 112 mmol/L (98-107); Glucose 76 mg/dL (74-99); Non-African American GFR(CKD) 46 (>60 ml/min/1.73 sqM); Potassium 4.6 mmol/L (3.5-5.1); Sodium 136 mmol/L (137-145)
--- NOTE | 2024-03-29 09:47 | P.PN ---
Subjective Progress Note Date: 03/29/24 The patient was seen and evaluated this morning which she is asymptomatic and hemodynamically stable with the echo showed normal LV systolic function with moderate pericardial effusion. With that being said and going to stop all kind of heparin and continue the current medical regimen using aspirin and statin and add colchicine to the current medical regimen for possible underlying pericarditis. The physical examination is remarkable for regular rhythm with a soft systolic murmur and clear breathing sounds bilaterally and no edema was noted in the lower extremities Assessment Chest discomfort which has resolved Evidence of myocardial injury Mild to moderate nonobstructive CAD Possible pericarditis Plan Start the patient on colchicine Continue aspirin Start the patient on PPI Follow-up with the patient Objective - Vital Signs Vital signs: Vital Signs Temp 98.6 F 03/29/24 03:33 Pulse 66 03/29/24 03:33 Resp 14 03/29/24 03:33 BP 140/80 03/29/24 03:33 Pulse Ox 98 03/29/24 03:33 FiO2 Intake & Output 03/28/24 03/29/24 03/29/24 18:59 06:59 18:59 Intake Total 50 Balance 50 Weight 40.5 kg Intake: IV 50 Other: Voiding Method Bedside Commode Diaper # Voids 1 - Labs CBC & Chem 7: 03/28/24 05:40 03/29/24 07:31 Labs: Abnormal Lab Results - Last 24 Hours (Table) 03/28/24 03/29/24 Range/Units 11:51 07:31 Sodium 136 L (137-145) mmol/L Chloride 112 H (98-107) mmol/L BUN 35 H (7-17) mg/dL Creatinine 1.14 H (0.52-1.04) mg/dL Urine Appearance Turbid H (Clear) Urine Protein 3+ H (Negative) Urine Blood Trace H (Negative) Urine Nitrite Positive H (Negative) Ur Leukocyte Esterase Large H (Negative) Urine RBC 90 H (0-5) /hpf Urine WBC 88 H (0-5) /hpf Ur Squamous Epith Cells 6 H (0-4) /hpf Amorphous Sediment Rare H (None) /hpf Urine Bacteria Many H (None) /hpf
[2024-03-29] MEDS: ASPIRIN 81 MG PO SCH (10:30)
[2024-03-29] MEDS: PANTOPRAZOLE 40 MG TABLET PO SCH (10:31)
[2024-03-29] MEDS: FAMOTIDINE 20 MG TAB PO SCH (10:32)
[2024-03-29 11:07] VITALS: BMI 14.8
[2024-03-29] MEDS: COLCHICINE 0.6 MG EACH PO SCH (12:16)
[2024-03-29 15:17] VITALS: BP 108/67; PULSE 64; RESP 18
--- NOTE | 2024-03-29 19:56 | P.DS ---
Providers Date of admission: 03/26/24 19:38 Expected date of discharge: 03/29/24 Attending physician: Jed Loera Consults: 03/26/24 19:37 Consult Physician Urgent Consulting Provider: [facility] Consult Reason/Comments: Chest pain Do you want consulting provider notified?: Yes Primary care physician: Sancho Contreras [facility] Course: Chief Complaint: Chest pain This is a 78-year-old patient who lives at a [facility]. PCP Dr. Contrears Patient presents to the ER with chest discomfort going on for 4 to 5 days. Somewhat constant. No radiation. Some shortness of breath. No precipitating or relieving factor. No fever no chills. No cough. March 28: Patient in the ER overflow. Seen this afternoon. Pending cardiac catheterization. Still having some chest pain. NPO. March 29: Patient underwent cardiac catheterization. Yesterday. Showed mild to moderate nonobstructive disease. Patient is felt to have underlying pericarditis. Started on colchicine. Feeling better. She will follow-up outpatient with her own balance truing inspector. Given her weight of less than 70 she will be put on colchicine 0.6 mg daily. Questions answered. Breathing stable. Social history: Lives at [facility]. Former smoker. Physical examination: VITAL SIGNS: Afebrile, 64, 16, 108 x 67, 99% room air GENERAL: Laying in bed, comfortable EYES: Absent right eye. Blind HEENT: External appearance of nose and ears normal, oral cavity grossly normal. NECK: JVD not raised; masses not palpable. HEART: First and second heart sounds are normal; no edema. LUNGS: Respiratory rate normal; decreased breath sound. ABDOMEN: Soft, no tenderness no guarding rigidity r, liver spleen not palpable, no masses palpable. PSYCH: Patient able to answer simple questions. But forgetful l. MUSCULOSKELETAL:No Clubbing/cyanosis;muscles-grossly intact. OA multiple joints NEUROLOGICAL: Blind. INVESTIGATIONS, reviewed in the clinical context: March 29: BUN 35 creatinine 1.14 2D echocardiogram: EF 60-65%. Moderate increased posterior wall thickness and septal wall thickness. Moderate pericardial effusion. March 28: White count 6.8 hemoglobin 9.8 potassium 4.6 BUN 46 creatinine 1.54 March 27, 2024: White count 6 hemoglobin 11.1 platelets 171 Sodium 141 potassium 4.5 BUN 46 creatinine 1.61 EKG tracing personally reviewed by me-normal sinus rhythm. Rate 68, LVH. Some ST-T wave changes inferolateral leads Chest x-ray film personally reviewed by me-hyperinflation., Some cardiomegaly Troponin I 0.035, 0.043, 0.045 LDL 91.1 Previous labs: Creatinine 0.99 on February 10, 2024 Renal ultrasound January 2024: Unremarkable Assessment plan: -Acute kidney injury., Patient on Aldactone: Improved Renal ultrasound was unremarkable in January 2024 Hold Aldactone. IV fluids was given -Acute coronary syndrome, anterior chest wall pain.: From likely viral acute pericarditis troponins that are leveled off in the setting of kidney injury. EKG changes are present. IV heparin. Telemetry. Cardiology following Lopressor 12.5 twice daily -Mild to moderate nonobstructive coronary artery disease per cardiac catheterization -Moderate pericardial effusion, likely secondary to pericarditis Colchicine 0.6 mg daily -Mild to moderate cognitive impairment possible late onset Alzheimer's dementia. - Blind Right eye enucleated -GERD Pepcid -Primary osteoarthritis Pain medication as needed -Hyperlipidemia Zocor -Full code Disposition: Assisted living Labs: CBC BMP next week Past Medical History Past Medical History: Blood Disorder, Hyperlipidemia, Hypertension, Myocardial Infarction ([place]) Additional Past Medical History / Comment(s): blind, spacer rt eye, legally blind left eye, anemia Last Myocardial Infarction Date:: ? History of Any Multi-Drug Resistant Organisms: C-DIFF Date of last positivie culture/infection: 2006 MDRO Source:: cdiff Past Surgical History: Appendectomy, Back Surgery, Heart Catheterization, Hysterectomy, Orthopedic Surgery Additional Past Surgical History / Comment(s): cystoscopy 08/2023, l4-5, l5-s1 laminectomy Past Anesthesia/Blood Transfusion Reactions: No Reported Reaction Past Psychological History: No Psychological Hx Reported Smoking Status: Former smoker Past Alcohol Use History: None Reported Past Drug Use History: None Reported Plan - Discharge Summary New Discharge Prescriptions: New Colchicine [Colcrys] 0.6 mg PO DAILY #30 each Aspirin 81 mg PO DAILY #30 tab Pantoprazole [Protonix] 40 mg PO AC-BRKFST #30 tab Continue Ferrous Gluconate 324 mg PO Q2D Famotidine [Pepcid] 20 mg PO BID Lactobacillus Acidophilus [Acidophilus] 1 tab PO DAILY Cyanocobalamin (Vitamin B-12) [Vitamin B-12] 1,000 mcg PO DAILY Calcium Carbonate [Calcium] 1,200 mg PO DAILY Solifenacin Succinate [Vesicare] 10 mg PO DAILY Alendronate Sodium [Fosamax] 70 mg PO Q7D HYDROcodone/APAP 10-325MG [[place] 10-325] 1 tab PO TID Ondansetron Odt [Zofran ODT] 8 mg PO BID PRN PRN Reason: Nausea Labetalol [Trandate] 100 mg PO BID Acetaminophen Tab [Tylenol] 1,000 mg PO TID Simvastatin [Zocor] 40 mg PO HS diphenhydrAMINE HCL [Benadryl] 25 mg PO HS PRN PRN Reason: allergies/sleep tiZANidine [Zanaflex] 4 mg PO TID PRN PRN Reason: Muscle Spasm [id number]-Krpobkamn-Xtkvzsij [Maxitrol Ophth Oint] 1 applic RIGHT EYE HS Discontinued Spironolactone [Aldactone] 25 mg PO DAILY No Action Triple [place] 1 tab PO BID Ubidecarenone [Coenzyme Q10] 200 mg PO DAILY Garlic 1,000 mg PO DAILY Cranberry 42,000 Mg 42,000 mg PO DAILY Discharge Medication List Acetaminophen Tab [Tylenol] 1,000 mg PO TID 10/08/23 [History] Alendronate Sodium [Fosamax] 70 mg PO Q7D 10/08/23 [History] Calcium Carbonate [Calcium] 1,200 mg PO DAILY 10/08/23 [History] Cyanocobalamin (Vitamin B-12) [Vitamin B-12] 1,000 mcg PO DAILY 10/08/23 [History] Famotidine [Pepcid] 20 mg PO BID 10/08/23 [History] Ferrous Gluconate 324 mg PO Q2D 10/08/23 [History] Garlic 1,000 mg PO DAILY 10/08/23 [History] Labetalol [Trandate] 100 mg PO BID 10/08/23 [History] Lactobacillus Acidophilus [Acidophilus] 1 tab PO DAILY 10/08/23 [History] Simvastatin [Zocor] 40 mg PO HS 10/08/23 [History] Solifenacin Succinate [Vesicare] 10 mg PO DAILY 10/08/23 [History] Triple [place] 1 tab PO BID 10/08/23 [History] Ubidecarenone [Coenzyme Q10] 200 mg PO DAILY 10/08/23 [History] diphenhydrAMINE HCL [Benadryl] 25 mg PO HS PRN 10/08/23 [History] HYDROcodone/APAP 10-325MG [[place] 10-325] 1 tab PO TID 02/06/24 [History] Cranberry 42,000 Mg 42,000 mg PO DAILY 02/07/24 [History] Ondansetron Odt [Zofran ODT] 8 mg PO BID PRN 02/07/24 [History] tiZANidine [Zanaflex] 4 mg PO TID PRN 02/07/24 [History] Srjhikvp-Yjkaefgrw-Jfbarfvs [Maxitrol Ophth Oint] 1 applic RIGHT EYE HS 03/26/24 [History] Aspirin 81 mg PO DAILY #30 tab 03/29/24 [Rx] Colchicine [Colcrys] 0.6 mg PO DAILY #30 each 03/29/24 [Rx] Pantoprazole [Protonix] 40 mg PO AC-BRKFST #30 tab 03/29/24 [Rx] Follow up Appointment(s)/Referral(s): own-balance truing inspectordr [Other] - 1 Week Sancho Contreras MD [Primary Care Provider] - 1-2 days Discharge Disposition: HOME SELF-CARE
== END 2024-03-29 16:41 | disposition home or self-care (01) | DRG 287 ==
LOC: EC 16:35 → 1SOBS 19:38 → 3SCARD 19:43
PROVIDERS: ADMIT Hospitalist; ATTEND Hospitalist
PROC: 4A023N7 Measurement of Cardiac Sampling and Pressure, Left Heart, Percutaneous Approach (ICD-10-PCS; principal; 2024-03-28 16:10)
PROC: B2111ZZ Fluoroscopy of Multiple Coronary Arteries using Low Osmolar Contrast (ICD-10-PCS; principal; 2024-03-28 16:10)
DX: I30.1 Infective pericarditis (principal); J90 Pleural effusion, not elsewhere classified; N17.9 Acute kidney failure, unspecified; I31.39 Other pericardial effusion (noninflammatory); B97.89 Other viral agents as the cause of diseases classified elsewhere; K21.9 Gastro-esophageal reflux disease without esophagitis; I25.10 Atherosclerotic heart disease of native coronary artery without angina pectoris; E78.5 Hyperlipidemia, unspecified; I11.9 Hypertensive heart disease without heart failure; M19.91 Primary osteoarthritis, unspecified site; G30.1 Alzheimer's disease with late onset; F02.80 Dementia in other diseases classified elsewhere, unspecified severity, without behavioral disturbance, psychotic disturbance, mood disturbance, and anxiety; H54.8 Legal blindness, as defined in USA; Z87.891 Personal history of nicotine dependence; Z79.899 Other long term (current) drug therapy; Z79.83 Long term (current) use of bisphosphonates; Z79.82 Long term (current) use of aspirin; I25.2 Old myocardial infarction; Z88.5 Allergy status to narcotic agent; Z88.8 Allergy status to other drugs, medicaments and biological substances; Z71.3 Dietary counseling and surveillance
CPT/HCPCS: 36415; 71046; 80048; 80053; 80061; 81001; 83735; 84484; 85025; 85610; 85652; 85730; 86140; 93005; 93306; 93454; 96365; 96366; 99285